=== PATIENT | male | born 1945 | race Caucasian/White ===

== ENCOUNTER → 2018-09-05 07:41 | Outpatient (CLI) | payer OTHER, SELFPAY ==
--- NOTE | 2018-09-05 | DI.MRI.S_ITS ---
PROCEDURE: MR LUMBAR SPINE WO CON INDICATIONS: SPINAL STENOSIS TECHNIQUE: Noncontrast sagittal T1 spin echo and T2 fast echo, sagittal STIR, axial T1 and T2 fast spin echo through the lumbar spine. In cases with scoliosis, additional coronal T2 fast spin echo may be performed. COMPARISON: , CR, XR CHEST 1 VIEW, 05/01/2018, 12:16. , CR, XR LUMBAR SPINE 2 OR 3 VIEWS, 05/01/2018, 12:16. FINDINGS: Image quality: Excellent. Alignment and Curvature: There is grade 1 anterolisthesis of L4-L5. Bone Marrow: There is moderate compression fracture of L2 vertebral body with 50-60% loss of vertebral body height. There is mild marrow edema of L2, suggesting subacute fracture. Spinal Cord: Conus medullaris terminates at the T12-L1 level. Visualized cord demonstrates normal signal and size. Paraspinous Soft Tissues: No paravertebral masses. L1-L2: Mild loss of disc height and disc desiccation. There is diffuse posterior disc bulge. A small posterior central annular fissure is suspected. The central canal is mildly narrowed. Mild bilateral foraminal stenosis. L2-L3: Mild loss of disc height and disc desiccation. There is diffuse posterior disc bulge and disc osteophyte complex. The central canal is mildly narrowed. Dire-rm-ulgwcltc bilateral foraminal stenosis. L3-L4: Mild loss of disc height and disc desiccation. There is diffuse posterior disc bulge and disc osteophyte complex. Mild bilateral facet arthropathy and moderate hypertrophy of ligamentum flavum. The central canal is moderately narrowed. Moderate left and mild right foraminal stenosis. L4-L5: Moderate loss of disc height and disc desiccation. There is diffuse posterior disc bulge and disc osteophyte complex. Severe bilateral facet arthropathy. The central canal is severely narrowed. Moderate bilateral foraminal stenosis. L5-S1: Severe loss of disc height and disc desiccation. There is diffuse posterior disc bulge and disc osteophyte complex. Mild bilateral facet arthropathy. The central canal is minimally narrowed. Moderate bilateral foraminal stenosis. IMPRESSION: 1. Moderate compression fracture of L2. 2. Multilevel degenerative disc disease and facet arthropathy as described. 3. Multilevel central canal stenosis, severe at L4-L5, moderate at L3-L4 and mild at several other levels. 4. Multilevel foraminal stenosis as described. Dictated by: Cristel Earl M.D. on 09/05/2018 at 16:39 Approved by: Cristel Earl M.D. on 09/05/2018 at 17:40
== END ==
PROVIDERS: PCP Internal Medicine; Visit Provider Internal Medicine
DX: M48.56XA Collapsed vertebra, not elsewhere classified, lumbar region, initial encounter for fracture (principal); M48.061 Spinal stenosis, lumbar region without neurogenic claudication; M48.07 Spinal stenosis, lumbosacral region; M47.816 Spondylosis without myelopathy or radiculopathy, lumbar region; M47.817 Spondylosis without myelopathy or radiculopathy, lumbosacral region; M51.36 Other intervertebral disc degeneration, lumbar region; M51.37 Other intervertebral disc degeneration, lumbosacral region
CPT/HCPCS: 72148

== ENCOUNTER → 2018-12-05 15:07 | Outpatient (CLI) | payer OTHER, SELFPAY | PROVIDERS: PCP Internal Medicine; Visit Provider Internal Medicine | DX: M81.0 Age-related osteoporosis without current pathological fracture (principal); Z87.891 Personal history of nicotine dependence | CPT/HCPCS: 77080 ==

== ENCOUNTER 2019-03-20 06:00 | Inpatient (IN) | payer OTHER, SELFPAY ==
[2019-03-15 08:57] VITALS: BMI 29.2
[2019-03-20] VITALS (23 sets, daily range): BP systolic 80–149; BP diastolic 46–98; PULSE 54–80; RESP 9–18; TEMP 36–37.3; O2SAT 92–100; BMI 27.5
--- NOTE | 2019-03-20 | DI.RAD.S_ITS ---
PROCEDURE: XR LUMBAR SPINE 2-3V INDICATIONS: L4-5, L5-S1 TLIF..... TECHNIQUE: 2 views of the lumbar spine were acquired. COMPARISON: None. FINDINGS: Bones: Intraoperative images demonstrate postsurgical changes compatible with L4-L5 and L5-S1 TLIF. Orthopedic hardware is intact. No lucency is identified at the bone hardware interface. Orthopedic hardware is appropriately positioned. Soft tissues: Overlying bowel gas pattern is normal. No suspicious soft tissue calcifications. IMPRESSION: Expected postsurgical change for L4-L5 and L5-S1 TLIF. Dictated by: Cookie Wiggins MD, PhD on 03/20/2019 at 10:41 Approved by: Cookie Wiggins MD, PhD on 03/20/2019 at 10:44
[2019-03-20] MEDS: LACTATED RINGERS 1,000 ML 42 ML IV ×3 (07:15→12:26)
--- NOTE | 2019-03-20 07:21 | PM.PREOP ---
Pre-operative Note Interval Note History & Physical reviewed/Exam performed by Physician: Yes Changes to H&P: No
--- NOTE | 2019-03-20 07:31 | PM.OP.1 ---
Operative Date/Time/Diagnoses Date of procedure: 03/20/19 Time of procedure: 11:32 Pre-op diagnosis: Lumbar stenosis with radiculopathy Lumbar spondylolisthesis Post-op diagnosis: same Procedure & Clinicians Procedure: L4-5, L5-S1 TLIF (post/post interbody fusion) with cages L4, L5, S1 screws Iliac crest bone graft aspirate L3-4, L4-5, L5-S1 laminectomies Use of microscope Placement of epidural catheter Same procedure as scheduled: Yes Indications: [age] year old male with intractable pain from stenosis. They had failed conservative management and requested operative intervention. Risks and benefits of surgery were discussed and appropriate consents were obtained. Surgeon: Riky Chan Yard Assistant: Susan Esteban Anesthesia Type: General Operative Notes Findings: None Closure Type: primary Specimen(s): none sent Prosthetic devices, grafts, tissues, transplants, or devices: NuVasive MAS Reline screws Globus Rise cage Applied: catheter Estimated Blood Loss (mL): 75 Procedure in detail: The patient was brought to the operating room and intubated on the table. A time-out was performed. They were then rolled over to the well-padded Justin table in the prone position. Preoperative antibiotics were given. The back was prepped and draped in the standard sterile fashion. Using fluoroscopy, a 6 cm longitudinal incision was made to the left of the midline. We used Bovie to come down to and split the lumbodorsal fascia. Using fluoroscopy and monitoring, we then percutaneously placed Jamshidi needles down the pedicles of L4, L5, and S1 on the left side. These were changed out to guidewires and then we tapped and then placed the NuVasive MAS Reline screw shanks. We then opened up the retractors and used Bovie to clear up the posterolateral gutter as well as medially along the lamina to the spinous processes. A bur was used to decorticate the transverse process of L5 and the sacral ala. We brought in the microscope. Using a combination of bur and Kerrison rongeurs, a laminectomy was performed from the left side at L5-S1. We performed a facetectomy to clear out the neural foramen until the nerve root was clear. We then began the TLIF prep. A the remainder of the facetectomy as well as cleaning up the exposure site was performed on this side at L5-S1. We carefully cleaned up the remainder of the foramen until we could easily retract the exiting root as well as clearing medially below the dura and expose the disc space. The disc was prepped with bipolar and then an annulotomy was performed. We performed a diskectomy using a combination of paddles, araseli, pituitaries, and curettes. We distracted the disc using a paddle and locked the retractor in an open position. We then filled the disc space with Osteocel bone graft. We then placed the globus Rise cage under fluoroscopy and then filled this in with more bone graft. The distraction on the retractor was released to compress down. This completed the posterior interbody fusion portion of the TLIF at L5-S1. We then changed our retractor blades up to the L4-5 level. The gutter was cleared and the L4 transverse process decorticated. We exposed medially. We performed a left-sided laminectomy at L4-5 using combination of bur and Kerrisons. This level was extremely tight centrally but we were finally able to get across to the other side of the canal, carefully depress the dura, and undermine the right-hand side until we had widely cleared out the spinal canal. This was separate and distinct from a TLIF approach due to the complexity and extensive time decompressing the entire central canal, not just a small laminotomy for exposure. We then rotated our retractor up to the L3-4 level. We cleared along the lamina medially. We then performed a laminectomy with a bur and Kerrison rongeurs. At the end we could sweep cephalad, caudally, and out the foramen and everything was opened. We then placed the screw heads, thania, and locked down the set screws. The wound was copiously irrigated. A small stab incision was made over the PSIS. We used a Jamshidi needle to aspirate several mL of bone marrow from the pelvis. This was mixed with the remaining Osteocel and combined with all of the locally harvested bone graft and placed in the posterolateral gutter for the posterior fusion of the TLIF at L4-5 and L5-S1. An epidural catheter was then placed in the spinal canal by carefully depressing the dura and advancing it 6 cm cephalad under the remaining lamina without resistance. The muscle fascia was closed. The catheter was then injected with a solution containing 4 mL of 0.5% Marcaine, 1 mg Stadol, 4 mg Duramorph, and 100 mcg of fentanyl. This was injected without resistance and the catheter was pulled. We then went to the opposite side. Again using fluoroscopy, a 4 cm incision was made and Bovie was used to come down to split the fascia. Using neural monitoring and fluoroscopy, Jamshidi needles were advanced down the pedicles of L4, L5, and S1 on the right side. These were switched over guidewires, tapped, and screws placed. We then placed a thania and locked the set screws on this side. The wound was irrigated. The fascia was closed. Vancomycin powder was placed in the wounds. The superficial and skin were closed. A sterile dressing was placed. The patient was then rolled over extubated and brought to recovery room without complications. Complications: none Post-operative Condition: stable Disposition: PACU Plan for aftercare: Inpatient. Up with therapy.
[2019-03-20] MEDS: CEFAZOLIN 2 GM/100 ML FROZ.PIGGY IV ×3 (07:50→23:40)
--- NOTE | 2019-03-20 08:22 | SUR.OPER ---
Prone on spine table, head in foam head support, padded chest and pelvic supports, gel pad at knees, lower legs supported by pillows; nipples, genitalia and toes free of pressure, arms secured on foam padded arm boards at <90 degrees abduction. Tape over blanket at thigh secured to table.
[2019-03-20] MEDS: SODIUM CHLORIDE 0.9% 1,000 ML, GENTAMICIN 80 MG IRR (08:32)
[2019-03-20] MEDS: VANCOMYCIN 1,000 MG VIAL 1000 MG TOP (08:32)
[2019-03-20] MEDS: THROMBIN (RECOMBINANT) 5,000 UNIT VIAL 5000 UNIT TOP (08:33)
[2019-03-20] MEDS: BUPIVACAINE 0.5% (PF) 4 ML, MORPHINE-PF 4 MG, BUTORPHANOL 1 MG, fentaNYL 100 MCG INJ (08:34)
--- NOTE | 2019-03-20 12:05 | SUR.PHASEI ---
Patient somnolent, but arouses to noxious stimuli. Patient is very slow to respond. WARD'S X 4. Drsg CDI. Small spot of serosanguionous on steri strip. Patient in SR/SB with infrequesnt PAC's.
--- NOTE | 2019-03-20 12:18 | SUR.PHASEI ---
Pt intermittently responding to questions or commands. Able to wiggle matthew toes. Verbalized his name but reported being in [place]. Did not respond to pain or comfort questions. Dozing intermittently
[2019-03-20] MEDS: HYDROMORPHONE 2 MG INJ 0.5 MG IV ×3 (12:33→13:59)
--- NOTE | 2019-03-20 12:36 | SUR.PHASEI ---
Pt unable to rate pain. Pt c/o sore low back.
--- NOTE | 2019-03-20 12:36 | SUR.PHASEI ---
Pt reported being able to feel touch to toes
--- NOTE | 2019-03-20 13:03 | SUR.PHASEI ---
Frequent premature beats, Dr. Correia shown monitor strips, VS stable. No new orders per MD.
--- NOTE | 2019-03-20 13:13 | SUR.PHASEI ---
Report called to Alma[facility]
--- NOTE | 2019-03-20 13:36 | SUR.PHASEI ---
Pt transferred to the floor on 2l NC, with belongings bags x2 and one black bag. VS stable. IV saline locked. Drsg status unchanged. Report to Almaz.
[2019-03-20] MEDS: LACTATED RINGERS 1,000 ML 125 ML IV ×2 (13:57→22:25)
--- NOTE | 2019-03-20 16:10 | PT.IIE ---
Current Diagnoses Spondylolisthesis, lumbar region (03/20/19) Spinal stenosis, lumbar region with neurogenic claudication (03/20/19) Wedge compression fracture of second lumbar vertebra, initial encounter for closed fracture (03/20/19) Surgery Performed Operation Date: 03/20/19 07:45 Actual Procedures p L3-S1 laminectomy & L4-S1 posterior instrumented fusion w/ bone graft - Riky Chan MD Surgical History (Last Updated 03/15/19 @ 09:54 by Bessy Campo RN) History of repair of left rotator cuff (Acute) History of repair of right rotator cuff (Acute) Hx of appendectomy (Acute) Medical History (Last Updated 03/15/19 @ 10:52 by Bessy Campo RN) Alcohol abuse (Acute) Compression fracture of L2 (Acute) Dementia (Acute) HLD (hyperlipidemia) (Acute) HTN (hypertension) (Acute) Physical Therapy Inpatient Evaluation/Re-Eval M1 PT/OT-IP Prior Functional Status Start: 03/20/19 17:58 Freq: NEEDED Status: Active Protocol: Document 03/20/19 16:10 AB (Rec: 03/20/19 18:17 AB [id number]) Medical Review Prior Functional Status Medical History Reviewed Yes Communication able to make needs known; pt is confused but able to follow slow one step commands. Mobility and Gait pt stated that he is independent with all mobilities and ambulation without AD Social History Household Members none Living Arrangements House Number of Floors (Floors) One Floor Number of Stairs To Enter/Railing? from the front: 5 steps with R rail ascending from the back: 2 steps with bilateral wide rails (can only hold on to one rail at a time ) on to a porch and another step to get into the house Home Environment Standard Height Toilet,Walk in Shower,Tub/Shower Home Equipment Front Wheel Walker,Grab Bars Near Toilet,Grab Bars In Shower Additional Social History Comment stated that somebody had lent him a FWW stated that he has neighbors that he can call for assistance but no consistent person to assist him M2 PT-IP Current Condition Start: 03/20/19 17:58 Freq: NEEDED Status: Active Protocol: Document 03/20/19 16:10 AB (Rec: 03/20/19 18:17 AB [id number]) Physical Therapy Current Condition Current Condition Evaluation Date 03/20/19 Treatment Diagnosis s/p L4-S1 TLIF; L3-S1 lami; difficulty in walking Onset Date 03/20/19 Precautions Lumbar Precautions Log Roll,No Twisting,Limit Bending,Lifting Restriction of 10 lbs,Gait Belt above Incisional Area Other Precautions falls M3 PT-IP Subjective Start: 03/20/19 17:58 Freq: NEEDED Status: Active Protocol: Document 03/20/19 16:10 AB (Rec: 03/20/19 18:17 AB [id number]) Subjective Physical Therapy Visit Type Type Initial Evaluation Visit Start Time 16:10 Visit Stop Time 17:19 Total Visit Minutes 69 Number of APPEALS EXAMINER Visits 0 Physical Therapy Visit Comments Patient Comments pt agreeable to do PT; pt has confusion but able to express self and able to inform PT that he is confused or does not understand the instruction /question Therapy Pain Assessment Pain When Pain Assessed At Rest Pain Present Pain Present Pain Reported Location Lower Back Intensity 6 Scale Used Numeric (1 - 10) Pain Management Techniques Re-positioning,Timing of Activity with Medications M4 PT-IP Mobility and Gait Start: 03/20/19 17:58 Freq: NEEDED Status: Active Protocol: Document 03/20/19 16:10 AB (Rec: 03/20/19 18:17 AB [id number]) PT-Bed Mobility Assessment Rolling Type of Rolling Log Rolling Level of Assist Maximal Assistance,1 Person Assistance Supine to Sit Supine to Sit Maximum Assistance,1 Person Assistance Sit to Supine Sit to Supine Maximum Assistance,1 Person Assistance Scooting Scooting to Edge of Bed Contact Guard Assistance PT-Transfer Assessment Sit to and From Stand Sit to and from Stand Minimal Assistance,Moderate Assistance,1 Person Assistance ,Use of Upper Extremities Equipment Transfer Assistive Device Gait Belt,Front Wheeled Walker Orthotic/Prosthetic Devices or Brace: No Comments Mobility Comments reviewed back precautions with pt and pt requires repeated cues to recall. pt required step by step instructions for techniques and safety. completed log roll max A and max A for supine to sit. pt was able to sit on EOB. initially c/o slight lightheadedness but was better after a few minutes of sitting. BP 117/69. pt completed sit to stand min to mod A and max cues. pt was able to maintain standing using FWW for support while assisted with brief management . pt ambulated in room mod A and max cues with (+) LOB with slight bilateral knee buckling requiring mod A for recovery. pt assisted back to bed. max A and max cues for sit to supine. positioned pt in bed. set up pt for dinner. call light within reach. Gait Assessment Gait Gait Assistance Required: Moderate Assistance,1 Person Assist Distance (Feet) 22 Able to Maintain Weight Bearing Status Yes During Gait Assistive Devices Assistive Device Gait Belt,Front Wheeled Walker Orthotic/Prosthetic Devices or Brace: No Gait Deviations General Gait Pattern Antalgic,Decreased Stride Length,Decreased Feet Clearance Factors Limiting Gait Function Factors Limiting Gait Function Decreased Activity Tolerance, Decreased Strength,Difficulty Following Directions,Limited Range of Motion,Pain,Poor Balance,Poor Safety Awareness Comments Gait Comments pt presents with unsteady gait with decrease BLE elevation with (+) LOB. pls refer to mobility section. PT-Balance Assessment Sitting Balance and Reactions Static Sitting Balance Ability Good Dynamic Sitting Balance Ability Good Standing Balance and Reactions Static Standing Balance Ability Fair Dynamic Standing Balance Ability Poor Device Used FWW M5 PT-IP Objective Assessments Start: 03/20/19 17:58 Freq: NEEDED Status: Active Protocol: Document 03/20/19 16:10 AB (Rec: 03/20/19 18:17 AB [id number]) Orientation Orientation/Cognition Level of Alertness Confusional State Orientation Name,Age,Birthday,Month,Date, Year,Situation Safety Awareness Decreased Safety Awareness Memory Description Short Term Impaired,Nursing Home Impaired Comments pt easily gets confused and needs cues with all tasks. pt has a diagnosis of dementia associated with alcoholism. Gross Range of Motion Lower Extremity ROM Assessment Within Functional Limits Strength Lower Extremity Strength Assessment Bilaterally Impaired Comments Strength Comments RLE: 4-/5 LLE: 3+/5 Muscle Tone Muscle Tone WNL Yes M6 PT-IP Treatment Start: 03/20/19 17:58 Freq: NEEDED Status: Active Protocol: Document 03/20/19 16:10 AB (Rec: 03/20/19 18:17 AB [id number]) Physical Therapy Treatment Education Education Provided Precautions,Weight Bearing Status,Post-Op Packet,Safety M7 PT-IP Assessment and Plan Start: 03/20/19 17:58 Freq: NEEDED Status: Active Protocol: Document 03/20/19 16:10 AB (Rec: 03/20/19 18:17 AB [id number]) PT Summary Assessment and Plan Potential Rehabilitation Potential Fair Status of Condition at Evaluation Evolving Summary Impairments Pain,ROM,Strength,Balance, Coordination,Sensation,Tone, Cognition,Bed Mobility, Transfers,Gait,Activity Tolerance Assessment Summary pt requiring max A with bed mobility and mod A for ambulation using FWW. pt needs to be more independent that current level to be able to safely d/c home. pt lives alone and will not much support at home. pt will require SNF rehab at this time to improve strength and functional independence prior to d/c home. pt has a diagnosis of dementia and requires one step cues for all tasks and safety and is a high fall risk. Goals Bed Mobility Goal Standby Assistance Transfer Goal Contact Guard Assistance,Front Wheeled Walker Gait Goal Contact Guard Assistance,Front Wheel Walker Gait Distance 150 Other Goals up/down 5 steps with R rail ascending min A Days to Meet Goals 10 Frequency of Treatment Frequency Of Treatment Twice a Day Treatment Plan Physical Therapy Treatment Plan Bed Mobility Training,Transfer Training,Gait Training, Therapeutic Exercise,Balance Retraining,Post Op Education, Discharge Planning,Hot or Cold Pack,Neuromuscular Re-ed, Coordination Retraining,Manual Therapy Other Recommendations and Next Treatment bed mobility, transfers, Focus ambulation Recommendations To Nursing Amount of Assist Needed 1 Person Assist Discharge Recommendations PT Discharge Recommendations SNF Rehab
[2019-03-20] MEDS: SIMVASTATIN 20 MG TABLET PO (18:23)
[2019-03-20] MEDS: GABAPENTIN 300 MG CAPSULE PO (21:51)
[2019-03-20] MEDS: DOCUSATE 100 MG CAPSULE PO (21:51)
[2019-03-20] MEDS: CELECOXIB 200 MG CAPSULE PO (21:51)
[2019-03-20] MEDS: SENNOSIDES 8.6 MG TABLET 17.2 MG PO (21:52)
[2019-03-21] MEDS: ONDANSETRON 4 MG/2 ML INJ IV (00:03)
--- NOTE | 2019-03-21 02:53 | PC.NURSE ---
Addendum entered by Raina Weeks R.N. 03/21/19 05:17: Patient has pulled out two IV's during NOC shift. He answers all questions appropriately but is very restless and impulsive. Has tried to get out of bed multiple times without calling for assistance, and has to be reoriented each time. Original Note: Called Dr. Meyer to inform of the bladder scan of 498 mL at 0130. Order to insert straight cath once. Straight catheter inserted at 0230 and 525mL removed.
[2019-03-21 03:19] VITALS: BP 122/57; PULSE 68; RESP 17; TEMP 37.4; O2SAT 94
[2019-03-21 05:16] LABS: Hematocrit 35.4 % (41-53); Hemoglobin 11.8 g/dL (13.5-17.5)
[2019-03-21] MEDS: CELECOXIB 200 MG CAPSULE PO ×2 (07:53→20:09)
[2019-03-21] MEDS: hydroCHLOROthiazide 25 MG TABLET PO (07:53)
[2019-03-21] MEDS: ASPIRIN EC 81 MG TABLET PO (07:54)
[2019-03-21] MEDS: DOCUSATE 100 MG CAPSULE PO ×2 (07:54→20:08)
--- NOTE | 2019-03-21 08:03 | PM.PNPO.1 ---
Subjective Subjective Date Patient Seen: 03/21/19 Time Patient Seen: 08:03 Interval history: He had some confusion overnight and pulled out and IV as well as his Francis catheter. He did need a in-and out catheter overnight. At this point he is sore in the back but no leg pain. Exam Vital Signs (past 8 hours): - 03/21/19 03:19 Temperature 99.4 F Pulse Rate 68 Respiratory Rate 17 Blood Pressure 122/57 L Pulse Oximetry 94 Oxygen Delivery Method Room Air Oxygen Flow Rate 0 Const Orientation: alert and oriented x3 Back/Spine/Pelvis Other: CDI. 5/5 motor both lower extremities Objective Labs Result Diagrams: 03/21/19 05:00 Labs: Laboratory Results - last 24 hr 03/21/19 05:00 Hgb 11.8 L Hct 35.4 L Assessment & Plan Post-op Postoperative Procedures: Procedures Operation Date: 03/20/19 07:45 Actual Procedures Side Surgeon p L3-S1 laminectomy & L4-S1 posterior instrumented fusion w/ bone graft Riky Chan MD He had a rough night but he is doing better today. No longer confused or disoriented. Mobilize today with physical therapy. Anticipate skilled rehab in 2 more days. Quality VTE Deep Vein Thrombosis/Pulmonary Embolism Present on Admission: No
[2019-03-21 08:10] VITALS: BP 104/60; PULSE 64; RESP 18; TEMP 36.8; O2SAT 96
[2019-03-21 08:24] LABS: Blood Urea Nitrogen 16 mg/dL (9-20); Calcium 8.9 mg/dL (8.4-10.2); Carbon Dioxide 32 mmol/L (22-32); Chloride 99 mmol/L (98-107); Estimated Glomerular Filt Rate > 60.0 mL/min (>60); Glucose 117 mg/dL (80-110); HEMOLYSIS < 15 (0-50); Potassium 3.9 mmol/L (3.4-5.1); Sodium 135 mmol/L (137-145)
--- NOTE | 2019-03-21 11:22 | PT.IPTN ---
Current Diagnoses Spondylolisthesis, lumbar region (03/20/19) Spinal stenosis, lumbar region with neurogenic claudication (03/20/19) Wedge compression fracture of second lumbar vertebra, initial encounter for closed fracture (03/20/19) Surgery Performed Operation Date: 03/20/19 07:45 Actual Procedures p L3-S1 laminectomy & L4-S1 posterior instrumented fusion w/ bone graft - Riky Chan MD Physical Therapy Treatment Note M2 PT-IP Current Condition Start: 03/20/19 17:58 Freq: NEEDED Status: Active Protocol: Document 03/20/19 16:10 AB (Rec: 03/20/19 18:17 AB [id number]) Physical Therapy Current Condition Current Condition Evaluation Date 03/20/19 Treatment Diagnosis s/p L4-S1 TLIF; L3-S1 lami; difficulty in walking Onset Date 03/20/19 Precautions Lumbar Precautions Log Roll,No Twisting,Limit Bending,Lifting Restriction of 10 lbs,Gait Belt above Incisional Area Other Precautions falls M3 PT-IP Subjective Start: 03/20/19 17:58 Freq: NEEDED Status: Active Protocol: Document 03/21/19 11:22 AB (Rec: 03/21/19 13:07 AB [id number]) Subjective Physical Therapy Visit Type Type Treatment Note Visit Start Time 11:22 Visit Stop Time 11:43 Total Visit Minutes 21 Number of AGRICULTURAL AIRCRAFT PILOT Visits 0 Physical Therapy Visit Comments Patient Comments pt agreed to get up Therapy Pain Assessment Pain When Pain Assessed During Mobility Pain Present Pain Present Pain Reported Location Lower Back Scale Used pain scale not stated but c/o pain Description With Movement Pain Management Techniques Re-positioning,Timing of Activity with Medications M4 PT-IP Mobility and Gait Start: 03/20/19 17:58 Freq: NEEDED Status: Active Protocol: Document 03/21/19 11:22 AB (Rec: 03/21/19 13:07 AB [id number]) PT-Bed Mobility Assessment Rolling Type of Rolling Log Rolling Level of Assist Moderate Assistance Supine to Sit Supine to Sit Maximum Assistance,1 Person Assistance PT-Transfer Assessment Sit to and From Stand Sit to and from Stand Minimal Assistance,1 Person Assistance,Use of Upper Extremities Equipment Transfer Assistive Device Gait Belt,Front Wheeled Walker Orthotic/Prosthetic Devices or Brace: No Transfers Transfer Destination Chair Transfer Technique pt ambulated using FWW Transfer Ability Level of Assist Minimal Assistance,Moderate Assistance,1 Person Assistance Gait Assessment Gait Gait Assistance Required: Minimum Assistance,Moderate Assistance Distance (Feet) 50 Able to Maintain Weight Bearing Status Yes During Gait Assistive Devices Assistive Device Gait Belt,Front Wheeled Walker Orthotic/Prosthetic Devices or Brace: No Gait Deviations General Gait Pattern Antalgic,Decreased Stride Length,Decreased Feet Clearance Factors Limiting Gait Function Factors Limiting Gait Function Decreased Activity Tolerance, Decreased Strength,Difficulty Following Directions, Incoordination,Limited Range of Motion,Pain,Poor Balance, Poor Safety Awareness Comments Gait Comments pt is impulsive and requires max cues with all tasks. Pt has decrease cognitive level affecting safety awareness. M5 PT-IP Objective Assessments Start: 03/20/19 17:58 Freq: NEEDED Status: Active Protocol: Document 03/20/19 16:10 AB (Rec: 03/20/19 18:17 AB [id number]) Orientation Orientation/Cognition Level of Alertness Confusional State Orientation Name,Age,Birthday,Month,Date, Year,Situation Safety Awareness Decreased Safety Awareness Memory Description Short Term Impaired,Fci Impaired Comments pt easily gets confused and needs cues with all tasks. pt has a diagnosis of dementia associated with alcoholism. Gross Range of Motion Lower Extremity ROM Assessment Within Functional Limits Strength Lower Extremity Strength Assessment Bilaterally Impaired Comments Strength Comments RLE: 4-/5 LLE: 3+/5 Muscle Tone Muscle Tone WNL Yes M6 PT-IP Treatment Start: 03/20/19 17:58 Freq: NEEDED Status: Active Protocol: Document 03/21/19 11:22 AB (Rec: 03/21/19 13:07 [id number]) Physical Therapy Treatment Education Education Provided Precautions,Safety Other Treatments Other Treatment Performed repeated back precautions with pt but pt unable to recall M7 PT-IP Assessment and Plan Start: 03/20/19 17:58 Freq: NEEDED Status: Active Protocol: Document 03/21/19 11:22 AB (Rec: 03/21/19 13:07 [id number]) PT Summary Assessment and Plan Potential Rehabilitation Potential Good Summary Impairments Pain,ROM,Strength,Balance, Coordination,Sensation,Tone, Cognition,Bed Mobility, Transfers,Gait,Activity Tolerance Progress Towards Goals Slow Progress due to Medical Issues,Slow Progress - Other Assessment Summary pt requiring max A with supine to sit and max cues to maintain back precautions. pt has decrease safety awareness affecting mobility level and assistance level. pt will require SNF rehab to improve strength and independence. Goals Bed Mobility Goal Standby Assistance Transfer Goal Contact Guard Assistance,Front Wheeled Walker Gait Goal Contact Guard Assistance,Front Wheel Walker Gait Distance 150 Other Goals up/down 5 steps with R rail ascending min A Days to Meet Goals 10 Frequency of Treatment Frequency Of Treatment Twice a Day Treatment Plan Physical Therapy Treatment Plan Bed Mobility Training,Transfer Training,Gait Training, Therapeutic Exercise,Balance Retraining,Post Op Education, Discharge Planning,Hot or Cold Pack,Neuromuscular Re-ed, Coordination Retraining,Manual Therapy Other Recommendations and Next Treatment bed mobility, transfers, Focus ambulation Recommendations To Nursing Amount of Assist Needed 1 Person Assist Discharge Recommendations PT Discharge Recommendations SNF Rehab
[2019-03-21 11:26] VITALS: BP 117/59; PULSE 91; RESP 20; TEMP 37; O2SAT 92
--- NOTE | 2019-03-21 13:45 | CM.DANOTE ---
DCP Assessment: EMR reviewed: Patient is a 73 yr old male with hx of Alzheimers was admitted for Lower back surgery. According to MD and PT patient will need SNF for rehab. Cm met with patient and explained CM role patient was oriented and alert at time of meeting. patient chose [facility] for preferred SNF choice and CM contacted [facility] -November to review Patient for possible placement. November at [facility] called back and agreed to accept patient. PASRR completed CM contacted [facility] to review patient and get an Auth for SNF placement left two messages [phone] for danelle who is covering for the patients [facility] CM TIEN Witt who is off today. department will F/U with [facility] for prior auth for SNF. Insurance; 1st: [facility] 2nd: self pay Plan: to D/C to [facility] for further Rehab. pending Authorization from [facility]. Suzy Meyer RN Discharge Planning/Care Management CM Discharge Assessment Start: 03/21/19 13:23 Freq: Status: Active Protocol: Document 03/21/19 13:23 HS (Rec: 03/21/19 13:45 [id number]) Discharge Planning Assessment Assigned Education And Training Manager Suzy Meyer RN DPOA/Assigned Designee Name Elizabeth (daughter) Advance Directives? Yes History Provided By Patient,Medical Record Has Patient been admitted in last 30 No days? Prior Living Arrangements House Household Members none Type of transporation used prior to Drives own vehicle admit Independent with ADL's No Is patient alert and oriented? Yes: Alert when CM spoke with patient but not previous night Caregiver for Another No Patient/Family Preference Retirement Facility Discharge Plan Retirement Facility Referrals Initiated Retirement If patient plan is SNF: Has PASSR been Yes completed? Medicare Choice List Provided Yes SNF/HH Preference [facility] preferred Contact Name/Phone November at [facility] contacted - and have accepted patient Has Agency SNF been contacted Yes Whiteboard Updated in Patient Room with Yes name and ext. # of Education And Training Manager Review Status In Process Next Review Type Continued Stay Review Pre-Anesthesia Assessment Start: 03/15/19 08:57 Freq: Status: Complete Protocol: Document 03/15/19 08:57 CAB (Rec: 03/15/19 10:02 CAB [id number]) Pre-Anesthesia Assessment PAC Comment Pt has significant dementia/ memory issues r/t prior alcoholism. PAC phone assessment difficult to complete. Patient Information Reviewed Via Phone Assessment Assessment Completed With Patient Diagnostic Results BMP/CMP,CBC,EKG Comment Outside labs/EKG scanned to record Primary Care Provider Sal Ivan Seen Specialist in Last 12 Months Yes Specialist Seen Orthopedist,Other Comment Neurology. Last PCP note 02/15 scanned to record Primary Language Yoruba Franchise Sales Manager Required No Height 172.72 cm Weight 87.09 kg Body Mass Index (BMI) 29.2 Hearing Ability Hard of Hearing Visual Assist Glasses Dentition Type Teeth, Natural Present Barriers to Learning Memory Comment Dementia/cognitive impairment r/t alcoholism Hx Anesthesia Reactions No: Dementia/cognitive impairment r/t alcoholism Hx Family Anesthesia Reaction Pt does not know Hx Malignant Hyperthermia Pt does not know Hx Blood Transfusions Pt does not know Laminator Yes: Dementia, no one to stay w/pt @ dc alcohol intake former Alcohol Intake Frequency Other: Sober x 8.5 years Smoking Status Former smoker how long ago did patient quit smoking Quit 8.5 years ago Substance Use Type does not use Pain Present Pain Reported Musculoskeletal Symptoms Back Pain,Radiating Pain into Limb History of Falling (Recent or History of Yes ) Patient is completely paralyzed or No completely immobile Mental Status Forgets limitations Is patient on oxygen? No Does patient have KWONG/SOB No Hx Sleep Apnea No Currently Taking a Beta Nicolasa No Can You Climb a Flight of Stairs Without Yes SOB Hx Chest Pain No Hx SOB No Hx Syncope or Dizziness No Anti-Coagulant Therapy No Has a Delivery Crew Member No Cardiac Testing No Hx Pacemaker/ICD No Pacemaker Rep Required? No Cardiac Clearance Received Not Applicable Diet Type At Home Regular dysphagia No Urinary Catheter Present No Hx Urinary Self Catheterization No Diabetes No Have you traveled outside the [facility] in the last 30 days? Marital Status / Lives With none Prior Living Arrangements House Number of Floors (Floors) One Floor Support System Friend(s) Does the Patient Have Assistance After No Surgery Patient Discharge Plan Description Return Home Feels Safe in Current Environment Yes Been Physically Hurt or Threatened By a No Person in Current Environment Do you have thoughts of harming yourself None or others? Are you currently considering suicide? No Do you have a plan to hurt yourself or No Plan others? Do You Have Any Spiritual Beliefs That No May Affect Your HC Choices? Do You Have Any Cultural Practices That No May Affect Your HC Choices? Comment Druze Who Can We Speak to About Patient's Care Family, friends Identifying Code for Release of Patient Declines to issue Information Health Care Proxy/Next of Kin Elizabeth (daughter) Health Care Proxy Phone Number Pt to update dos Emergency Contact Name Elizabeth (daughter) Emergency Contact Phone Number Pt to update dos PAC Instructions Durable medical equipment, Medications to take/avoid, Nasal antibiotic,No ETOH/ petroleum product on skin DOS, Post-op transportation,Pre- surgical wash,Sturdy shoes/ comfortable clothes,Do not bring valuables and remove jewelry
--- NOTE | 2019-03-21 14:57 | PC.NURSE ---
LOC/Ortho: Minimal pain, has declined pain med each time offered. Is disoriented to place, situation, and sl off on date. Started laughing at one point in time when told he was at the hospital and had surgery. Does admit to having dementia. This am he thought he needed to get his wallet and find a ride to get home. He was reassured. He will be staying awhile longer. He is quite pleasant, likes to tell jokes, hops oob or tries to about every 15-30mins. Able to figure out the chair alarm, stood, turned around and removed the chair alarm off its post and took it with him. O2 sats borderline this am on awakening. (sats were 90-92 and then increased w/IS and deep breathing to 97%) This afternoon when he finally napped it was 89-91%. Came up to 97% with deep breaths. Call placed to md to make him aware of sats and pt remains disoriented. His friend had called him and called this editorial writer also telling her pt was a little more disoriented than usual. Does have a hx of dementia which pt admits to and reports it was from to much partying. Has been sober for almost 9 yrs. Ortho - not following his lami precautions w/out max verb cues and needing freq reminders. He simply forgets. Minimal pain, other times will say the pain is severe. Po meds offered and refused so far. Says he doesn't need them. PPP, w/feet =/cool. Denies sensation changes to his legs. Cont w/poc.
--- NOTE | 2019-03-21 15:18 | PT.IPTN ---
Current Diagnoses Spondylolisthesis, lumbar region (03/20/19) Spinal stenosis, lumbar region with neurogenic claudication (03/20/19) Wedge compression fracture of second lumbar vertebra, initial encounter for closed fracture (03/20/19) Surgery Performed Operation Date: 03/20/19 07:45 Actual Procedures p L3-S1 laminectomy & L4-S1 posterior instrumented fusion w/ bone graft - Riky Chan MD Physical Therapy Treatment Note M2 PT-IP Current Condition Start: 03/20/19 17:58 Freq: NEEDED Status: Active Protocol: Document 03/20/19 16:10 AB (Rec: 03/20/19 18:17 AB [id number]) Physical Therapy Current Condition Current Condition Evaluation Date 03/20/19 Treatment Diagnosis s/p L4-S1 TLIF; L3-S1 lami; difficulty in walking Onset Date 03/20/19 Precautions Lumbar Precautions Log Roll,No Twisting,Limit Bending,Lifting Restriction of 10 lbs,Gait Belt above Incisional Area Other Precautions falls M3 PT-IP Subjective Start: 03/20/19 17:58 Freq: NEEDED Status: Active Protocol: Document 03/21/19 15:18 AB (Rec: 03/21/19 16:46 AB [id number]) Subjective Physical Therapy Visit Type Type Treatment Note Visit Start Time 15:18 Visit Stop Time 15:43 Total Visit Minutes 25 Number of AUDIO VISUAL TECH Visits 0 Physical Therapy Visit Comments Patient Comments pt agreeble to do PT Therapy Pain Assessment Pain When Pain Assessed During Mobility Pain Present Pain Present Pain Reported Location Lower Back Intensity 6 Pain Management Techniques Re-positioning M4 PT-IP Mobility and Gait Start: 03/20/19 17:58 Freq: NEEDED Status: Active Protocol: Document 03/21/19 15:18 AB (Rec: 03/21/19 16:46 AB [id number]) PT-Bed Mobility Assessment Supine to Sit Supine to Sit Moderate Assistance,1 Person Assistance Sit to Supine Sit to Supine Moderate Assistance,2 Person Assistance PT-Transfer Assessment Sit to and From Stand Sit to and from Stand Minimal Assistance,Moderate Assistance,1 Person Assistance ,Use of Upper Extremities Equipment Transfer Assistive Device Gait Belt,Front Wheeled Walker Orthotic/Prosthetic Devices or Brace: No Gait Assessment Gait Gait Assistance Required: Minimum Assistance,1 Person Assist Distance (Feet) 150 Able to Maintain Weight Bearing Status Yes During Gait Assistive Devices Assistive Device Gait Belt,Front Wheeled Walker Orthotic/Prosthetic Devices or Brace: No Gait Deviations General Gait Pattern Antalgic,Decreased Stride Length,Decreased Feet Clearance,Flexed Trunk,Step-to Gait Factors Limiting Gait Function Factors Limiting Gait Function Decreased Activity Tolerance, Decreased Strength,Difficulty Following Directions,Limited Range of Motion,Pain,Poor Balance,Poor Safety Awareness Comments Gait Comments pt requires max cues with all tasks. pt is also easily distracted and requires cues for redirections. M5 PT-IP Objective Assessments Start: 03/20/19 17:58 Freq: NEEDED Status: Active Protocol: Document 03/20/19 16:10 AB (Rec: 03/20/19 18:17 AB [id number]) Orientation Orientation/Cognition Level of Alertness Confusional State Orientation Name,Age,Birthday,Month,Date, Year,Situation Safety Awareness Decreased Safety Awareness Memory Description Short Term Impaired,Skilled Nursing Impaired Comments pt easily gets confused and needs cues with all tasks. pt has a diagnosis of dementia associated with alcoholism. Gross Range of Motion Lower Extremity ROM Assessment Within Functional Limits Strength Lower Extremity Strength Assessment Bilaterally Impaired Comments Strength Comments RLE: 4-/5 LLE: 3+/5 Muscle Tone Muscle Tone WNL Yes M6 PT-IP Treatment Start: 03/20/19 17:58 Freq: NEEDED Status: Active Protocol: Document 03/21/19 15:18 AB (Rec: 03/21/19 16:46 AB [id number]) Physical Therapy Treatment Education Education Provided Safety Other Treatments Other Treatment Performed reviewed back precautions and safety with pt. pt unable to recall is back precautions M7 PT-IP Assessment and Plan Start: 03/20/19 17:58 Freq: NEEDED Status: Active Protocol: Document 03/21/19 15:18 AB (Rec: 03/21/19 16:46 AB [id number]) PT Summary Assessment and Plan Potential Rehabilitation Potential Good Summary Impairments Pain,ROM,Strength,Balance, Coordination,Sensation,Tone, Cognition,Bed Mobility, Transfers,Gait,Activity Tolerance Progress Towards Goals Slow Progress - Other Assessment Summary pt requiring min to mod A with mobility and requires max cues with all tasks. pt with decrease cognitive level affecting mobility and safety awareness. pt requires repeated one step instructions during mobility. pt lives alone and will not much assistance at home. pt will require SNF rehab to improve strength and mobility. Goals Bed Mobility Goal Standby Assistance Transfer Goal Contact Guard Assistance,Front Wheeled Walker Gait Goal Contact Guard Assistance,Front Wheel Walker Gait Distance 150 Other Goals up/down 5 steps with R rail ascending min A Days to Meet Goals 10 Frequency of Treatment Frequency Of Treatment Twice a Day Treatment Plan Physical Therapy Treatment Plan Bed Mobility Training,Transfer Training,Gait Training, Therapeutic Exercise,Balance Retraining,Post Op Education, Discharge Planning,Hot or Cold Pack,Neuromuscular Re-ed, Coordination Retraining,Manual Therapy Other Recommendations and Next Treatment bed mobility, transfers, Focus ambulation Recommendations To Nursing Amount of Assist Needed 1 Person Assist Discharge Recommendations PT Discharge Recommendations SNF Rehab
[2019-03-21 16:07] VITALS: BP 132/76; PULSE 76; RESP 18; TEMP 36.9; O2SAT 97
--- NOTE | 2019-03-21 16:30 | OT.IP.EVAL ---
Current Diagnoses Spondylolisthesis, lumbar region (03/20/19) Spinal stenosis, lumbar region with neurogenic claudication (03/20/19) Wedge compression fracture of second lumbar vertebra, initial encounter for closed fracture (03/20/19) Surgery Performed Operation Date: 03/20/19 07:45 Actual Procedures p L3-S1 laminectomy & L4-S1 posterior instrumented fusion w/ bone graft - Riky Chan MD Past Medical History (Last Updated 03/15/19 @ 10:52 by Bessy Campo RN) Alcohol abuse (Acute) Compression fracture of L2 (Acute) Dementia (Acute) HLD (hyperlipidemia) (Acute) HTN (hypertension) (Acute) Surgical History (Last Updated 03/15/19 @ 09:54 by Bessy Campo RN) History of repair of left rotator cuff (Acute) History of repair of right rotator cuff (Acute) Hx of appendectomy (Acute) Occupational Therapy Inpatient Evaluation/Re-Eval M2 OT-IP Current Condition Start: 03/21/19 17:28 Freq: Status: Active Protocol: Document 03/21/19 16:30 [facility] (Rec: 03/21/19 17:50 [facility] [id number]) Occupational Therapy Current Condition Current Condition Evaluation Date 03/21/19 Treatment Diagnosis s/p L3-S1 Lami, L4-S1 TLIF decreased mobility Diagnosis Onset Date 03/20/19 Post Operative Precautions Abdominal Surgery Precautions Log Roll,Lifting Restrictions, Gait Belt above Incisional Area Weight Bearing Status Weight Bearing Status Weight Bear as Tolerated M3 OT- IP Subjective and Pain Start: 03/21/19 17:28 Freq: Status: Active Protocol: Document 03/21/19 16:30 [facility] (Rec: 03/21/19 17:50 [facility] [id number]) OT- Subjective Occupational Therapy Visit Type Type Initial Evaluation Visit Start Time 16:30 Visit Stop Time 17:02 Total Visit Minutes 32 Occupational Therapy Visit Comments Patient Comments Pt agreeable to work with OT. OT Pain Assessment Pain When Pain Assessed At Rest Pain Present Pain Present Denied Pain M4 OT- IP ADL's Start: 03/21/19 17:28 Freq: Status: Active Protocol: Document 03/21/19 16:30 [facility] (Rec: 03/21/19 17:50 [facility] [id number]) OT ADL-Dressing General Eval Lower Body Dressing Ability Maximum Assistance Areas Needing Assistance Pants/Shorts,Socks Comments OT Dressing Comments Pt able to reach down to get his feet into the pants however needing MOD cues not to bend at his back. MODA to help stand while pt able to pull up pants up over his hips. Pt will not be able to do socks at this time and therefore MAXA for socks. M5 OT- IP IADL's Start: 03/21/19 17:28 Freq: Status: Active Protocol: Document 03/21/19 16:30 [facility] (Rec: 03/21/19 17:50 [facility] [id number]) OT-Instrumental Activities of Daily Living Home Safety Awareness Home Safety Comments At this time pt unaware that he is in the hospital or even that he had back surgery. Pt lives home alone at this time not safe to go home. M6 OT- IP Functional Cognition Start: 03/21/19 17:28 Freq: Status: Active Protocol: Document 03/21/19 16:30 [facility] (Rec: 03/21/19 17:50 [facility] [id number]) Cognitive Factors Limiting Selfcare Function Cognitive Ability Level of Alertness Confusional State Patient Orientation Name Attention Span Ability Capable of Focused Attention, Unable to Sustain Attention Ability to Follow Commands Able to Follow One Step Commands with Increased Time, Able to Follow One Step Commands with Repetition Memory Description Immediate Impaired,Short Term Impaired Safety Awareness Decreased Recall of Precautions,Decreased Ability to Apply Precautions, Underestimates Need for Assistance Problem Solving Ability Unable to Identify Errors, Needs Assist to Identify Solutions Executive Function Ability Unable to Switch Focus,Unable to Filter Distractions,Unable to Make Plans,Unable to Organize Plans,Unable to Remember Details Cognitive Comments Cognitive Assessment Comments Pt states has dementia and does not remember things well. Pt needing step by step instructions for bed mobility, how to come from sit to stand , and safe use of FWW at this time. Pt unaware that he has back precautions or even that he had surgery. Pt needing to be reminded every several minutes that he is in the hospital as he just had back surgery. Pt is highly distracted and impulsive. M7 OT- IP Mobility and Balance Start: 03/21/19 17:28 Freq: Status: Active Protocol: Document 03/21/19 16:30 [facility] (Rec: 03/21/19 17:50 [facility] [id number]) OT- Bed Mobility Assessment Supine to Sit Supine to Sit Assist Moderate Assistance Sit to Supine Sit to Supine Assist Moderate Assistance Scooting Scooting to Edge of Bed Minimal Assistance OT-Transfer Assessment Sit to and From Stand Sit to and from Stand Minimal Assistance,Moderate Assistance Transfers Transfer Ability Moderate Assistance,1 Person Assistance Technique Transfer Destination Bed,Chair Transfer Technique Stand Step Pivot Devices Transfer Assistive Devices Gait Belt,Front Wheeled Walker Comments Mobility Comments Pt needing step by step instructions for log rolling, tactile cues and MAX verbal cues and MODA to assist from sidelying to sitting. Pt unable to come up to sit to stand safely and will need daily repetition for safety, correct hand positioning and technique to come to stand. Once upright pt needing assist for FWW guidance, verbal cue for safety and assist to help lower to the recliner. OT- Balance Assessment Sitting Balance and Reactions Static Sitting Balance Ability Normal Dynamic Sitting Balance Ability Good Standing Balance and Reactions Static Standing Balance Ability Fair M8 OT- IP Objective Assessments Start: 03/21/19 17:28 Freq: Status: Active Protocol: Document 03/21/19 16:30 [facility] (Rec: 03/21/19 17:50 [facility] [id number]) OT Gross Range of Motion Upper Extremity Range of Motion Assessment Within Functional Limits OT Strength Upper Extremity Strength Assessment Within Functional Limits M9 OT- IP Assessment and Plan Start: 03/21/19 17:28 Freq: Status: Active Protocol: Document 03/21/19 16:30 [facility] (Rec: 03/21/19 17:50 [facility] [id number]) OT Summary Assessment and Plan Potential Rehabilitation Potential Good Analytic Complexity at Evaluation Low Summary OT Impairments Balance,Functional Cognition, Functional Mobility,Grooming, Dressing,Toileting,Bathing, Toilet Transfers,Shower Transfers Progress Towards Goals Slow Progress due to Cognition Assessment Summary Pt low complexity and now needing MODA for bed mobility needs, MAX vc to be able to remember that he is in the hospital and had back surgery, and needing MODA to help put on his pants. Pt is not safe to go home and is a high fall risk and would benefit from skilled rehab prior to going home. Pt lives alone and would benefit from ongoing training for safety of back precautions for all ADl and functional mobility needs. Goals Grooming Goal Independent Dressing Goal Independent Toileting Goal Independent Bathing Goal Independent Toilet Transfer Goal Independent Shower Transfer Goal Independent Patient/Caregiver Education Goal Demonstrate Post-Op Precautions,Caregiver Independent Assisting Patient Days to Meet Goals 15 Frequency of Treatment Frequency Of Treatment Once a Day Treatment Plan OT Treatment Plan ADL Training,Functional Cognition Training,Functional Mobility,Patient/Family Education,Discharge Planning Other Treatment Recommendations and Next Standing at sink for grooming Treatment Focus needs. Pt to be able to recall that he has had back surgery. Discharge Recommendations OT Discharge Recommendations SNF Rehab
[2019-03-21] MEDS: SIMVASTATIN 20 MG TABLET PO (17:09)
[2019-03-21] MEDS: HYDROCODONE/ACET 5/325 TABLET 1 TAB PO (18:28)
[2019-03-21 20:00] VITALS: BP 147/98; PULSE 74; RESP 18; TEMP 36.7; O2SAT 97
[2019-03-21] MEDS: SENNOSIDES 8.6 MG TABLET 17.2 MG PO (20:09)
[2019-03-21] MEDS: GABAPENTIN 300 MG CAPSULE PO (20:10)
--- NOTE | 2019-03-21 22:02 | PC.NURSE ---
Pt's SCD's have not been applied due to confusion as well as impulsiveness when getting out of bed. Confirmed OK to leave off with RN.
--- NOTE | 2019-03-21 22:27 | PC.NURSE ---
Pt can not get comfortable in his bed. Elevated HOB which he stated helped a bit. When asked his pain level he stated a 5 or 6 out of 10. Notified RN.
[2019-03-21] MEDS: hydrOXYzine pamoate 25 MG CAPSULE PO (22:36)
[2019-03-21 23:35] VITALS: BP 126/76; PULSE 80; RESP 18; TEMP 37.3; O2SAT 91
[2019-03-22] VITALS (8 sets, daily range): BP systolic 133–155; BP diastolic 64–99; PULSE 60–89; RESP 16–18; TEMP 36.5–37.2; O2SAT 91–99
--- NOTE | 2019-03-22 03:20 | PC.NURSE ---
Addendum entered by Suzan Garner R.N. 03/22/19 06:45: Pt appears to have figured out how to disable bed alarm. Alarm was on and pt was able to exit without setting alarm off. Addendum entered by Suzan Garner R.N. 03/22/19 06:07: Pt still impulsive and does not use call light appropriately. Original Note: Shift note: Pt became restless around 3am, attempting to exit bed, refusing to use walker to ambulate, resistant to SHREDDED FILLER CIGAR MAKER MACHINE or nursing assistance. Pt agreed to go to the bathroom as he had requested to use toilet, upon entering, closed bathroom door and locked it. While in there, pt removed gate belt. Pt seems confused on his hospitalization and post-op status when explaining his surgeon's orders and hospital policy. Pt able to remove chair alarm clip easily from gown, will attempt to place it in a more difficult to remove area. Coordinator notified of pt's non-compliance and when pt had locked himself in the bathroom.
[2019-03-22] MEDS: DOCUSATE 100 MG CAPSULE PO ×2 (08:25→20:25)
[2019-03-22] MEDS: CELECOXIB 200 MG CAPSULE PO ×2 (08:25→20:26)
[2019-03-22] MEDS: ASPIRIN EC 81 MG TABLET PO (08:25)
[2019-03-22] MEDS: hydroCHLOROthiazide 25 MG TABLET PO (08:25)
--- NOTE | 2019-03-22 08:28 | PM.PNPO.1 ---
Subjective Subjective Date Patient Seen: 03/22/19 Time Patient Seen: 08:28 Interval history: He is fairly comfortable. Still sore in the back. Has been up and mobilizing well with physical therapy. Had some confusion last night and accidentally locked himself in the bathroom. Exam Vital Signs (past 8 hours): - 03/22/19 05:08 03/22/19 07:32 Temperature 98.5 F 97.9 F Pulse Rate 76 77 Respiratory Rate 16 16 Blood Pressure 152/73 H 146/72 H Pulse Oximetry 93 98 Oxygen Delivery Method Room Air Oxygen Flow Rate 0 Const Orientation: alert Back/Spine/Pelvis Other: CDI. 5/5 motor both lower extremities Objective Labs Result Diagrams: 03/21/19 05:00 03/21/19 05:00 Labs: Laboratory Results - last 24 hr 03/21/19 05:00 Sodium 135 L Potassium 3.9 Chloride 99 Carbon Dioxide 32 BUN 16 Creatinine 0.80 Estimated GFR > 60.0 BUN/Creatinine Ratio 20.0 Glucose 117 H Calcium 8.9 Assessment & Plan Post-op Postoperative Procedures: Procedures Operation Date: 03/20/19 07:45 Actual Procedures Side Surgeon p L3-S1 laminectomy & L4-S1 posterior instrumented fusion w/ bone graft Riky Chan MD he is doing well and mobilizing well after surgery. Plan to continue working with physical therapy. Patient normally lives at home by himself and family would like him to go to [facility]. Social work is currently working on SNF authorization. Quality VTE Deep Vein Thrombosis/Pulmonary Embolism Present on Admission: No
--- NOTE | 2019-03-22 08:31 | PM.DS.1 ---
History of Present Illness History of Present Illness Date Patient Seen: 03/24/19 Time Patient Seen: 09:00 Chief complaint: Translaminar Interbody Fusion/Laminotomy Narrative: 73-year-old male with spinal stenosis. He has had problems with back pain over the years but his symptoms greatly escalated last fall after a fall off of a ladder. He has been through several months of physical therapy. Epidural injections have never lasted for him. Discharge Providers Provider Date of admission: 03/20/19 06:00 Discharge Date: 03/24/19 Primary care physician: Sal Ivan MD Consults: 03/20/19 13:24 Consult to Occupational Therapy Evaluate & Treat Comment: Physician Instructions: Evaluate and treat Consult to Physical Therapy Evaluate & Treat Comment: Physician Instructions: Evaluate and Treat Discharge provider: Riky Chan MD Summary Hospital Course Discharge Diagnosis: Lumbar stenosis and spondylolisthesis with radiculopathy Hospital Course: He is brought to the operating room on 03/20/2019 where he underwent a L3 through S1 laminectomy with instrumented fusion from L4 through S1. Postoperatively his pain gradually improved. He was mobilizing with physical therapy. He did have some instances with confusion and disorientation, much more pronounced at night time. This improved over the course of his hospitalization. Pain control was good and he did not require any narcotic medication after the 1st day. However we felt that he was not safe to be alone as he normally lives by himself. Arrangements were made where friend could come stay with him for the next several days. Status at Discharge Functional status at discharge: uses cane/walker Overall status at discharge: patient is progressing back to baseline Exam Vital Signs (past 8 hours): - 03/22/19 05:08 03/22/19 07:32 Temperature 98.5 F 97.9 F Pulse Rate 76 77 Respiratory Rate 16 16 Blood Pressure 152/73 H 146/72 H Pulse Oximetry 93 98 Oxygen Delivery Method Room Air Oxygen Flow Rate 0 Const Orientation: alert Back/Spine/Pelvis Other: CDI. 5/5 motor both lower extremities Objective Labs Result Diagrams: 03/21/19 05:00 03/21/19 05:00 Labs: Laboratory Results - last 24 hr 03/21/19 05:00 Sodium 135 L Potassium 3.9 Chloride 99 Carbon Dioxide 32 BUN 16 Creatinine 0.80 Estimated GFR > 60.0 BUN/Creatinine Ratio 20.0 Glucose 117 H Calcium 8.9 Discharge Plan Discharge Plan Patient Disposition: Home Discharge comment: Follow-up 1.5 weeks As he was not needing narcotics, the [place] and [place] prescriptions were shredded Discharge Med Rec/Prescriptions Prescriptions: New celecoxib [Celebrex] 200 mg Capsule 200 mg PO BID PRN (Reason: pain) Qty: 60 RF: 0 docusate sodium [DOK] 100 mg Capsule 100 mg PO BID PRN (Reason: constipation) Qty: 30 RF: 0 hydrocodone-acetaminophen 5-325 mg Tablet 1 tab PO Q6HR PRN (Reason: pain) Qty: 20 RF: 0 Continued acetaminophen-codeine 300-30 mg Tablet 1 tab PO DAILY PRN (Reason: Pain) RF: 0 aspirin 81 mg Tablet,Delayed Release (Dr/Ec) 81 mg PO DAILY RF: 0 hydrochlorothiazide 25 mg tablet 25 mg PO DAILY RF: 0 simvastatin 20 mg tablet 20 mg PO QPM RF: 0 Discontinued ibuprofen 200 mg Capsule 200 mg PO BID PRN (Reason: Pain) RF: 0 Follow up/Referrals: Sal Ivan MD [Primary Care Provider] - Provider Discharge Instructions Diet: Diet as Tolerated Activity: Limited bend twist lift, 10 lb maximum Skin/Wound/Dressing Care Report to your healthcare provider any signs of infection, such as:: chills, fever, night sweats, increased pain, unusual drainage and unusual redness Dressing: may change dressing and shower POD#5 (Tuesday) Visit Report/Discharge Packet Instructions: How to Prevent Falls, DI for Transforaminal Lumbar Interbody Fusion Stand Alone Forms: Surgery Discharge Discharge Data Primary Care Provider: Sal Ivan Quality VTE Deep Vein Thrombosis/Pulmonary Embolism Present on Admission: No
--- NOTE | 2019-03-22 10:36 | PT.IPTN ---
Current Diagnoses Spondylolisthesis, lumbar region (03/20/19) Spinal stenosis, lumbar region with neurogenic claudication (03/20/19) Wedge compression fracture of second lumbar vertebra, initial encounter for closed fracture (03/20/19) Surgery Performed Operation Date: 03/20/19 07:45 Actual Procedures p L3-S1 laminectomy & L4-S1 posterior instrumented fusion w/ bone graft - Riky Chan MD Physical Therapy Treatment Note M2 PT-IP Current Condition Start: 03/20/19 17:58 Freq: NEEDED Status: Active Protocol: Document 03/20/19 16:10 [facility] (Rec: 03/20/19 18:17 AB [id number]) Physical Therapy Current Condition Current Condition Evaluation Date 03/20/19 Treatment Diagnosis s/p L4-S1 TLIF; L3-S1 lami; difficulty in walking Onset Date 03/20/19 Precautions Lumbar Precautions Log Roll,No Twisting,Limit Bending,Lifting Restriction of 10 lbs,Gait Belt above Incisional Area Other Precautions falls M3 PT-IP Subjective Start: 03/20/19 17:58 Freq: NEEDED Status: Active Protocol: Document 03/22/19 10:36 [facility] (Rec: 03/22/19 11:23 AB [id number]) Subjective Physical Therapy Visit Type Type Treatment Note Visit Start Time 10:36 Visit Stop Time 11:03 Total Visit Minutes 27 Number of WIRE DRAWING MACHINE TENDER Visits 0 Physical Therapy Visit Comments Patient Comments pt agreeable to do PT Therapy Pain Assessment Pain Present Pain Present Pain Reported Location Lower Back Scale Used pain scale not stated Pain Management Techniques Timing of Activity with Medications M4 PT-IP Mobility and Gait Start: 03/20/19 17:58 Freq: NEEDED Status: Active Protocol: Document 03/22/19 10:36 AB (Rec: 03/22/19 11:23 AB [id number]) PT-Bed Mobility Assessment Rolling Type of Rolling Log Rolling Level of Assist Standby Assistance Supine to Sit Supine to Sit Standby Assistance Sit to Supine Sit to Supine Standby Assistance PT-Transfer Assessment Sit to and From Stand Sit to and from Stand Standby Assistance,Contact Guard Assistance Equipment Transfer Assistive Device Gait Belt,Front Wheeled Walker Orthotic/Prosthetic Devices or Brace: No Transfers Transfer Destination Bed,Chair Transfer Technique Stand Step Pivot Transfer Ability Level of Assist Contact Guard Assistance,1 Person Assistance,Use of Upper Extremities Comments Mobility Comments pt requires max cues for all tasks for techniques and safety completed bed mobiltiy log roll supine<>sit x 3 sets and completed with SBA and cues Gait Assessment Gait Gait Assistance Required: Contact Guard Assist Distance (Feet) 150 Able to Maintain Weight Bearing Status Yes During Gait Assistive Devices Assistive Device Gait Belt,Front Wheeled Walker Orthotic/Prosthetic Devices or Brace: No Factors Limiting Gait Function Factors Limiting Gait Function Decreased Strength,Difficulty Following Directions,Limited Range of Motion,Pain,Poor Balance,Poor Safety Awareness Comments Gait Comments completed ambulation using FWW 150 +120 ft CGA and cues. pt is easily distracted and requires cues to focus on task . Stair Climbing Assessment Evaluation Level of Assist On Stairs Contact Guard Assistance,1 Person Assistance Devices Stair Climbing Assistive Devices Left Railing,Right Railing Technique/Endurance Stair Climbing Direction Ascend and Descend Stair Climbing Technique Step Over Step,Step to Step Number of Steps Climbed 3 Stair Climbing Set # Repetitions (reps) 3 Comments Stair Climbing Comments pt completed up/down 3 steps initially with bilateral rails and step to pattern CGA. completed again with R rail only and then L rail with step over step pattern requiring CGA and cues. M5 PT-IP Objective Assessments Start: 03/20/19 17:58 Freq: NEEDED Status: Active Protocol: Document 03/20/19 16:10 AB (Rec: 03/20/19 18:17 AB [id number]) Orientation Orientation/Cognition Level of Alertness Confusional State Orientation Name,Age,Birthday,Month,Date, Year,Situation Safety Awareness Decreased Safety Awareness Memory Description Short Term Impaired,Fdc Impaired Comments pt easily gets confused and needs cues with all tasks. pt has a diagnosis of dementia associated with alcoholism. Gross Range of Motion Lower Extremity ROM Assessment Within Functional Limits Strength Lower Extremity Strength Assessment Bilaterally Impaired Comments Strength Comments RLE: 4-/5 LLE: 3+/5 Muscle Tone Muscle Tone WNL Yes M6 PT-IP Treatment Start: 03/20/19 17:58 Freq: NEEDED Status: Active Protocol: Document 03/22/19 10:36 AB (Rec: 03/22/19 11:23 AB [id number]) Physical Therapy Treatment Education Education Provided Precautions,Safety M7 PT-IP Assessment and Plan Start: 03/20/19 17:58 Freq: NEEDED Status: Active Protocol: Document 03/22/19 10:36 AB (Rec: 03/22/19 11:23 AB [id number]) PT Summary Assessment and Plan Potential Rehabilitation Potential Good Summary Impairments Pain,ROM,Strength,Balance, Coordination,Sensation, Cognition,Bed Mobility, Transfers,Gait,Activity Tolerance Progress Towards Goals Progressing Toward Goals Assessment Summary pt progressing with mobility but continues to require cues with all tasks to maintain back precautions. pt lives alone and will not have much support at home. pt will still benefit from SNF rehab to improve independence with mobility prior to d/c home. Goals Bed Mobility Goal Independent Transfer Goal Standby Assistance,Front Wheeled Walker Gait Goal Standby Assistance,Front Wheel Walker Gait Distance 250 Other Goals up/down 5 steps with R rail ascending SBA Days to Meet Goals 10 Frequency of Treatment Frequency Of Treatment Twice a Day Treatment Plan Physical Therapy Treatment Plan Bed Mobility Training,Transfer Training,Gait Training, Therapeutic Exercise,Balance Retraining,Post Op Education, Discharge Planning,Hot or Cold Pack,Neuromuscular Re-ed, Coordination Retraining,Manual Therapy Other Recommendations and Next Treatment bed mobility, transfers, Focus ambulation Recommendations To Nursing Amount of Assist Needed 1 Person Assist Discharge Recommendations PT Discharge Recommendations SNF Rehab
--- NOTE | 2019-03-22 12:50 | CM.DPC ---
Addendum entered by ARIS Thomas 03/22/19 15:31: ADD: JOYCE received a call back from Ann at [facility] stating their Physicians review team determined that its too premature to make a final determination on SNF auth, therefore pt not approved or denied SNF yet but requesting updated PT/OT notes from today to be faxed to review when available. JOYCE called and updated MD and will wait until tomorrow to determine if SNF an option. BF Original Note: DCP Cont: Per Ortho MD, pt making good progress and pt has been hopeful to d/c home alone when discharged but family and therapy have concerns with pt d/c home alone due to his confusion and cognitive deficits. SNF recommendation. JOYCE updated MD that [facility] reviewing to determine if pt meets criteria for SNF. JOYCE faxed SNF clinicals and request to review to [facility] and called and spoke to assigned VALENTINA Juarez ([phone]) and she confirmed that clinicals were received but since pt's surgery was elective then clinicals must go to their Physicians Review team and Ann is sending them to the Physician to review now. Plan: JOYCE to follow for [facility] Physician review to determine if they will auth SNF at d/c. [facility] following for likely acceptance pending auth. ARIS Thomas
--- NOTE | 2019-03-22 14:22 | PT.IPTN ---
Current Diagnoses Spondylolisthesis, lumbar region (03/20/19) Spinal stenosis, lumbar region with neurogenic claudication (03/20/19) Wedge compression fracture of second lumbar vertebra, initial encounter for closed fracture (03/20/19) Surgery Performed Operation Date: 03/20/19 07:45 Actual Procedures p L3-S1 laminectomy & L4-S1 posterior instrumented fusion w/ bone graft - Riky Chan MD Physical Therapy Treatment Note M2 PT-IP Current Condition Start: 03/20/19 17:58 Freq: NEEDED Status: Active Protocol: Document 03/20/19 16:10 AB (Rec: 03/20/19 18:17 AB [id number]) Physical Therapy Current Condition Current Condition Evaluation Date 03/20/19 Treatment Diagnosis s/p L4-S1 TLIF; L3-S1 lami; difficulty in walking Onset Date 03/20/19 Precautions Lumbar Precautions Log Roll,No Twisting,Limit Bending,Lifting Restriction of 10 lbs,Gait Belt above Incisional Area Other Precautions falls M3 PT-IP Subjective Start: 03/20/19 17:58 Freq: NEEDED Status: Active Protocol: Document 03/22/19 14:22 MT (Rec: 03/22/19 14:58 MT [email or web address]) Subjective Physical Therapy Visit Type Type Treatment Note Visit Start Time 14:22 Visit Stop Time 14:35 Total Visit Minutes 13 Number of HOUSING SPECIALIST Visits 0 Physical Therapy Visit Comments Patient Comments Pt was agreeable to participate in physical therapy session Therapy Pain Assessment Pain Present Pain Present Denied Pain M4 PT-IP Mobility and Gait Start: 03/20/19 17:58 Freq: NEEDED Status: Active Protocol: Document 03/22/19 14:22 MT (Rec: 03/22/19 14:58 MT [email or web address]) PT-Bed Mobility Assessment Rolling Type of Rolling Log Rolling,Roll to Left Level of Assist Standby Assistance,1 Person Assistance Supine to Sit Supine to Sit Standby Assistance,1 Person Assistance Sit to Supine Sit to Supine Standby Assistance,1 Person Assistance Scooting Scooting to Edge of Bed Standby Assistance PT-Transfer Assessment Sit to and From Stand Sit to and from Stand Standby Assistance,1 Person Assistance,Use of Upper Extremities Equipment Transfer Assistive Device None,Gait Belt Transfers Transfer Destination Bed,Chair Transfer Technique Stand Step Pivot Transfer Ability Level of Assist Standby Assistance,1 Person Assistance Comments Mobility Comments pt demonstrates ability to perform bed mobiltiy and transfers with SBA and cueing for safety and maintaining back precautions. Pt was asked to perform multiple sit< >supine bed mobility in order to assess pt's independence with logrolling for maintaining precautions and safety during bed mobility and assess carryover with learning from previous PT session, but pt was unable to demonstrate adherance to the task without frequent cueing from therapist. Gait Assessment Gait Gait Assistance Required: Contact Guard Assist,1 Person Assist Distance (Feet) 200 Able to Maintain Weight Bearing Status Yes During Gait Assistive Devices Assistive Device None,Gait Belt Orthotic/Prosthetic Devices or Brace: No Gait Deviations General Gait Pattern Decreased Stride Length,Flexed Trunk Factors Limiting Gait Function Factors Limiting Gait Function Decreased Strength,Difficulty Following Directions,Poor Balance,Poor Safety Awareness Comments Gait Comments Pt ambulated ~200ft without use of 2WW and CGA. Pt required frequent cueing for staying focused on task and for safety. Pt self-reported that he had no pain and was not feeling fatigued following activity. M5 PT-IP Objective Assessments Start: 03/20/19 17:58 Freq: NEEDED Status: Active Protocol: Document 03/20/19 16:10 AB (Rec: 03/20/19 18:17 AB [id number]) Orientation Orientation/Cognition Level of Alertness Confusional State Orientation Name,Age,Birthday,Month,Date, Year,Situation Safety Awareness Decreased Safety Awareness Memory Description Short Term Impaired,Alf Impaired Comments pt easily gets confused and needs cues with all tasks. pt has a diagnosis of dementia associated with alcoholism. Gross Range of Motion Lower Extremity ROM Assessment Within Functional Limits Strength Lower Extremity Strength Assessment Bilaterally Impaired Comments Strength Comments RLE: 4-/5 LLE: 3+/5 Muscle Tone Muscle Tone WNL Yes M6 PT-IP Treatment Start: 03/20/19 17:58 Freq: NEEDED Status: Active Protocol: Document 03/22/19 14:22 MT (Rec: 03/22/19 14:58 MT [email or web address]) Physical Therapy Treatment Education Education Provided Precautions,Safety M7 PT-IP Assessment and Plan Start: 03/20/19 17:58 Freq: NEEDED Status: Active Protocol: Document 03/22/19 14:22 MT (Rec: 03/22/19 14:58 MT [email or web address]) PT Summary Assessment and Plan Potential Rehabilitation Potential Good Summary Impairments Pain,ROM,Strength,Balance, Coordination,Sensation, Cognition,Bed Mobility, Transfers,Gait,Activity Tolerance Progress Towards Goals Progressing Toward Goals Assessment Summary Pt demonstrated ability to ambulate without use of AD CGA , demonstrating decreased need for assistance. He does require frequent cueing with both functional mobility and gait in order to maintain his back precautions and to ensure pt safety. Pt's lack of carry over for learning and adherance for precautions and decreased safety awareness makes this pt a candidate for d/c to a SNF or at home with 24/7 assistance to ensure pt's safety. Goals Bed Mobility Goal Independent,Standby Assistance Transfer Goal Standby Assistance Gait Goal Standby Assistance Gait Distance 250 Other Goals up/down 5 steps with R rail ascending SBA Days to Meet Goals 10 Frequency of Treatment Frequency Of Treatment Twice a Day Treatment Plan Physical Therapy Treatment Plan Bed Mobility Training,Transfer Training,Gait Training, Therapeutic Exercise,Balance Retraining,Post Op Education, Discharge Planning,Hot or Cold Pack,Neuromuscular Re-ed, Coordination Retraining,Manual Therapy Other Recommendations and Next Treatment bed mobility, transfers, Focus ambulation without AD Recommendations To Nursing Amount of Assist Needed 1 Person Assist Discharge Recommendations PT Discharge Recommendations Home with Assistance,Home with 24/7 Assist,Home Health,SNF Rehab
--- NOTE | 2019-03-22 15:40 | PC.NURSE ---
Ortho/LOC: Pt has been disoriented most of the day. Forgetting he ever had surgery, thinks he is at home and wanting to know why staff are in his room. Doesn't follow lami precautions unless someone is with him to keep him cued and reinforcing his blt. He simply forgets. Otherwise he has been voiding, denies any problems tolerating diet. Declined pain med each time offered. Back is sore but tolerable to pt. Has needed someone with him all day. Visiting with his friend right now. Cont w/poc.
--- NOTE | 2019-03-22 16:00 | OT.IP.TRT ---
Current Diagnoses Spondylolisthesis, lumbar region (03/20/19) Spinal stenosis, lumbar region with neurogenic claudication (03/20/19) Wedge compression fracture of second lumbar vertebra, initial encounter for closed fracture (03/20/19) Surgery Performed Operation Date: 03/20/19 07:45 Actual Procedures p L3-S1 laminectomy & L4-S1 posterior instrumented fusion w/ bone graft - Riky Chan MD Occupational Therapy Treatment Note M2 OT-IP Current Condition Start: 03/21/19 17:28 Freq: Status: Active Protocol: Document 03/21/19 16:30 [facility] (Rec: 03/21/19 17:50 [facility] [id number]) Occupational Therapy Current Condition Current Condition Evaluation Date 03/21/19 Treatment Diagnosis s/p L3-S1 Lami, L4-S1 TLIF decreased mobility Diagnosis Onset Date 03/20/19 Post Operative Precautions Abdominal Surgery Precautions Log Roll,Lifting Restrictions, Gait Belt above Incisional Area Weight Bearing Status Weight Bearing Status Weight Bear as Tolerated M3 OT- IP Subjective and Pain Start: 03/21/19 17:28 Freq: Status: Active Protocol: Document 03/22/19 15:40 [facility] (Rec: 03/22/19 18:03 [facility] [id number]) OT- Subjective Occupational Therapy Visit Type Type Treatment Note Visit Start Time 15:40 Visit Stop Time 16:49 Total Visit Minutes 51 Occupational Therapy Visit Comments Patient Comments Pt had a friend, Shashi stopped by to see him and that will be taking him home if cleared to go home. Shashi with pt's consent trying to find someone to stay with the pt. Patient/Caregiver Goals To go home. OT Pain Assessment Pain When Pain Assessed At Rest Pain Present Pain Present Denied Pain M4 OT- IP ADL's Start: 03/21/19 17:28 Freq: Status: Active Protocol: Document 03/22/19 15:40 [facility] (Rec: 03/22/19 18:03 [facility] [id number]) OT ADL-Grooming General Evaluation Grooming Ability Independent Areas Needing Assistance Retrieving/Set-up of Grooming Items Comments OT Grooming Comments Pt mainly just needing reminders to recall that the grooming items are from the hospital and for him to use. OT ADL-Dressing General Eval Upper Body Dressing Ability Independent Lower Body Dressing Ability Standby Assistance Comments OT Dressing Comments MAX vc to follow lower body dressing for back precautions. With cues able to cross his legs over to initiate pants over his feet and able to tristin /doff socks. At this time pt does not remember that he had surgery or where he lives and will not remember how to use any adaptive dressing equipment, therefore will not be teaching him any lower body equipment at this time. OT ADL-Bathing Bathing Type Bathing Type Shower General Evaluation Bathing Ability Moderate Assistance Areas Needing Assistance Retrieving/Setting Up Items Devices Bathing Equipment Shower Chair without Arms,Grab Bars Comments OT Bathing Comments REBECCA to help wash wash his back and MAX VC for back precautions not to twist in the shower. Pt needing cues to sit down on the shower chair in order to wash his feet. M5 OT- IP IADL's Start: 03/21/19 17:28 Freq: Status: Active Protocol: Document 03/21/19 16:30 [facility] (Rec: 03/21/19 17:50 [facility] [id number]) OT-Instrumental Activities of Daily Living Home Safety Awareness Home Safety Comments At this time pt unaware that he is in the hospital or even that he had back surgery. Pt lives home alone, at this time no safe to go home. M6 OT- IP Functional Cognition Start: 03/21/19 17:28 Freq: Status: Active Protocol: Document 03/22/19 15:40 [facility] (Rec: 03/22/19 18:03 [facility] [id number]) Cognitive Factors Limiting Selfcare Function Cognitive Ability Level of Alertness Alert,Confusional State Patient Orientation Name Attention Span Ability Capable of Focused Attention, Unable to Sustain Attention Ability to Follow Commands Able to Follow One Step Commands with Increased Time, Able to Follow One Step Commands with Repetition Memory Description Immediate Impaired,Short Term Impaired Safety Awareness Decreased Recall of Precautions,Decreased Ability to Apply Precautions, Underestimates Need for Assistance Problem Solving Ability Unable to Identify Errors, Needs Assist to Identify Solutions Executive Function Ability Unable to Switch Focus,Unable to Filter Distractions,Unable to Make Plans,Unable to Organize Plans,Unable to Remember Details Cognitive Comments Cognitive Assessment Comments Pt does not remember that he had surgery, where he lives, and not able to recall any back precautions even after repetition and multiple cues. Nursing aid able to post signs in his room to help remind him of his back precautions. Pt on occasion able to state not able to lift . M7 OT- IP Mobility and Balance Start: 03/21/19 17:28 Freq: Status: Active Protocol: Document 03/22/19 15:40 [facility] (Rec: 03/22/19 18:03 [facility] [id number]) OT-Transfer Assessment Sit to and From Stand Sit to and from Stand Standby Assistance Transfers Transfer Ability Standby Assistance,Minimal Assistance Technique Transfer Destination Bed,Shower Stall Transfer Technique Stand Step Pivot Devices Transfer Assistive Devices Gait Belt Comments Mobility Comments Pt able to get up from the recliner with SBA and walk in the room but needing MAX vc to follow back precautions as tends to twist and is highly distracted. Pt while trying to get into the shower needing REBECCA for balance and use of grab bar to step over the small threshold. OT- Balance Assessment Sitting Balance and Reactions Static Sitting Balance Ability Normal Dynamic Sitting Balance Ability Normal Standing Balance and Reactions Static Standing Balance Ability Good Dynamic Standing Balance Ability Fair M8 OT- IP Objective Assessments Start: 03/21/19 17:28 Freq: Status: Active Protocol: Document 03/21/19 16:30 [facility] (Rec: 03/21/19 17:50 [facility] [id number]) OT Gross Range of Motion Upper Extremity Range of Motion Assessment Within Functional Limits OT Strength Upper Extremity Strength Assessment Within Functional Limits M9 OT- IP Assessment and Plan Start: 03/21/19 17:28 Freq: Status: Active Protocol: Document 03/22/19 15:40 [facility] (Rec: 03/22/19 18:03 [facility] [id number]) OT Summary Assessment and Plan Potential Rehabilitation Potential Good Analytic Complexity at Evaluation Low Summary OT Impairments Balance,Functional Cognition, Functional Mobility,Dressing, Toileting,Bathing,Toilet Transfers,Shower Transfers Progress Towards Goals Slow Progress due to Cognition Assessment Summary At this time due to pt's poor safety awareness as unable to follow back precautions is a high fall risk would benefit from continued training and education for back precaution needs. Pt able to recall at times with cues for 1-2 back precautions which is an improvement from yesterday. Therefore, pt not safe to go home and would need 24/ supervision or need to go to skilled rehab to continue to educate pt for incorporation of back precautions for ADL , IADL and functional mobility needs. Goals Grooming Goal Independent Dressing Goal Independent Toileting Goal Independent Bathing Goal Independent Toilet Transfer Goal Independent Shower Transfer Goal Independent Patient/Caregiver Education Goal Demonstrate Post-Op Precautions,Caregiver Independent Assisting Patient Days to Meet Goals 10 Frequency of Treatment Frequency Of Treatment Once a Day Treatment Plan OT Treatment Plan ADL Training,Functional Cognition Training,Functional Mobility,Patient/Family Education,Discharge Planning Other Treatment Recommendations and Next Pt to recall back precautions. Treatment Focus Pt to be independent with good safety for back precautions. Discharge Recommendations OT Discharge Recommendations Home with 24/7 Assist,SNF Rehab Other Discharge Recommendations Pt lives alone and has no one to stay with him at this time.
[2019-03-22] MEDS: SIMVASTATIN 20 MG TABLET PO (17:09)
--- NOTE | 2019-03-22 17:49 | PC.NURSE ---
OT/PT help pt shower , needs cuing and he went for a walk in the hallway with staff
[2019-03-22] MEDS: GABAPENTIN 300 MG CAPSULE PO (20:25)
[2019-03-22] MEDS: SENNOSIDES 8.6 MG TABLET 17.2 MG PO (20:26)
--- NOTE | 2019-03-22 20:46 | PC.NURSE ---
Evening shift note: Fall precautions and 1:1 staff observation was continued for the entirety of this shift for patient safety and fall prevention. At this time remains restless and impulsive and still needs frequent redirection and verbal cues. Slept 1 hour this shift. During initial assessment, the patient was alert and oriented to self and date. Later in the the shift at 2100 is oriented to self, date, and place, but not to situation. He thinks he has not had his surgery. The patient showered during Occupational Therapy visit and tolerated that well. The patient states his back pain is better than it has been. No PRN meds given for pain. Patient is voiding adequately and no BM this shift. Vital signs are stable and patient safety maintained.
[2019-03-23] VITALS (7 sets, daily range): BP systolic 116–151; BP diastolic 67–85; PULSE 61–84; RESP 14–18; TEMP 36.5–36.7; O2SAT 96–98
--- NOTE | 2019-03-23 07:27 | P.PN_ITS ---
Subjective Subjective Date Patient Seen: 03/23/19 Time Patient Seen: 07:27 Interval history: He is doing well. Minimal pain. Up and ambulating independently. However, per Physical therapy he is requiring constant cues for cracked mobility and safety. Exam Vital Signs (past 8 hours): - 03/22/19 23:57 03/23/19 02:07 03/23/19 04:32 Temperature 99.0 F 98.1 F Pulse Rate 60 61 Respiratory Rate 16 14 Blood Pressure 154/78 H 149/75 H Pulse Oximetry 91 96 Oxygen Delivery Method Room Air Oxygen Flow Rate 0 Const Orientation: alert and oriented x3 Back/Spine/Pelvis Other: CDI. 5/5 motor both lower extremities. Objective Labs Result Diagrams: 03/21/19 05:00 03/21/19 05:00 Assessment & Plan Post-op Postoperative Procedures: Procedures Operation Date: 03/20/19 07:45 Actual Procedures Side Surgeon p L3-S1 laminectomy & L4-S1 posterior instrumented fusion w/ bone graft Riky Chan MD he has recovered well after surgery, but is still having some postoperative confusion. Physical therapy thought he would best benefit with either full-time help at home or custodial. We are still waiting on insurance authorization at this point. However, either way, he should be stable for discharge today. Quality VTE Deep Vein Thrombosis/Pulmonary Embolism Present on Admission: No
--- NOTE | 2019-03-23 07:53 | CM.DPC ---
Addendum entered by ARIS Thomas 03/23/19 16:05: ADD: Per Gordon, pt does not meet criteria for SNF auth. JOYCE called pt's friend Freda and confirmed that she can provide transport home tomorrow after work around 1500 and stay with pt for 5 days but not available to stay with pt today. JOYCE met bedside with pt and updated on above and pt states he feels frustrated he can't go home today and is appreciative of Freda staying with him tomorrow for a few days but was hopeful to go home today. JOYCE updated MD who states due to pt's need for 27/12 and SNF insurance denial then pt will d/c home via friend Freda tomorrow. BF Original Note: DCP Cont: Per , pt stable for d/c today to either SNF pending insurance auth or home. JOYCE received a msg from pt's local supportive friend Shashi ([phone]) stating he has contacted their mutual friend Freda ([phone]) who can likely stay with the pt for a few days starting 03/25/19 if pt's insurance does not auth SNF. although pt currently does not have anyone to stay with him for 2 days if he discharges home today. JOYCE faxed PT/OT/MD updated notes to Gordon Juarez this morning for ongoing Physicians review for final decision on SNF today. Plan: JOYCE to follow closely for Leyva final review to determine if pt can d/c to SNF vs home with friends to assist. ARIS Thomas
[2019-03-23] MEDS: DOCUSATE 100 MG CAPSULE PO ×2 (08:28→20:03)
[2019-03-23] MEDS: CELECOXIB 200 MG CAPSULE PO ×2 (08:28→20:04)
[2019-03-23] MEDS: ASPIRIN EC 81 MG TABLET PO (08:28)
[2019-03-23] MEDS: hydroCHLOROthiazide 25 MG TABLET PO (08:28)
[2019-03-23] MEDS: ACETAMINOPHEN 325 MG TABLET 650 MG PO (08:29)
--- NOTE | 2019-03-23 10:46 | PT.IPTN ---
Current Diagnoses Spondylolisthesis, lumbar region (03/20/19) Spinal stenosis, lumbar region with neurogenic claudication (03/20/19) Wedge compression fracture of second lumbar vertebra, initial encounter for closed fracture (03/20/19) Surgery Performed Operation Date: 03/20/19 07:45 Actual Procedures p L3-S1 laminectomy & L4-S1 posterior instrumented fusion w/ bone graft - Riky Chan MD Physical Therapy Treatment Note M2 PT-IP Current Condition Start: 03/20/19 17:58 Freq: NEEDED Status: Active Protocol: Document 03/20/19 16:10 AB (Rec: 03/20/19 18:17 AB [id number]) Physical Therapy Current Condition Current Condition Evaluation Date 03/20/19 Treatment Diagnosis s/p L4-S1 TLIF; L3-S1 lami; difficulty in walking Onset Date 03/20/19 Precautions Lumbar Precautions Log Roll,No Twisting,Limit Bending,Lifting Restriction of 10 lbs,Gait Belt above Incisional Area Other Precautions falls M3 PT-IP Subjective Start: 03/20/19 17:58 Freq: NEEDED Status: Active Protocol: Document 03/23/19 10:46 AB (Rec: 03/23/19 12:47 AB [id number]) Subjective Physical Therapy Visit Type Type Treatment Note Visit Start Time 10:46 Visit Stop Time 11:19 Total Visit Minutes 33 Number of LICENSED PHYSICAL THERAPIST ASSISTANT Visits 0 Physical Therapy Visit Comments Patient Comments pt agreeable to do PT Therapy Pain Assessment Pain Present Pain Present Denied Pain M4 PT-IP Mobility and Gait Start: 03/20/19 17:58 Freq: NEEDED Status: Active Protocol: Document 03/23/19 10:46 AB (Rec: 03/23/19 12:47 AB [id number]) PT-Bed Mobility Assessment Rolling Type of Rolling Log Rolling Level of Assist Standby Assistance Supine to Sit Supine to Sit Standby Assistance,1 Person Assistance Sit to Supine Sit to Supine Standby Assistance,1 Person Assistance Scooting Scooting to Edge of Bed Standby Assistance PT-Transfer Assessment Sit to and From Stand Sit to and from Stand Standby Assistance Equipment Transfer Assistive Device None,Gait Belt Transfers Transfer Destination Bed Transfer Technique Stand Step Pivot Transfer Ability Level of Assist Standby Assistance Comments Mobility Comments bed mobility training conducted x 8 reps. pt initially requires cues but able to complete without cues towards the end and completed 2 reps without cues. Gait Assessment Gait Gait Assistance Required: Standby Assistance Distance (Feet) 250 Able to Maintain Weight Bearing Status Yes During Gait Assistive Devices Assistive Device None,Gait Belt Orthotic/Prosthetic Devices or Brace: No Gait Deviations General Gait Pattern Flexed Trunk Factors Limiting Gait Function Factors Limiting Gait Function Decreased Strength,Difficulty Following Directions,Limited Range of Motion,Pain,Poor Balance,Poor Safety Awareness Stair Climbing Assessment Evaluation Level of Assist On Stairs Standby Assistance,Contact Guard Assistance,Minimal Assistance Devices Stair Climbing Assistive Devices None,Left Railing Technique/Endurance Stair Climbing Direction Ascend and Descend Stair Climbing Technique Step to Step Number of Steps Climbed 3 Stair Climbing Set # Repetitions (reps) 4 Comments Stair Climbing Comments completed up/down steps using bilateral rails SBA; completed again using just R rail and then just R rail SBA. completed again without rail requiring CGA to min A and cues M5 PT-IP Objective Assessments Start: 03/20/19 17:58 Freq: NEEDED Status: Active Protocol: Document 03/20/19 16:10 AB (Rec: 03/20/19 18:17 AB [id number]) Orientation Orientation/Cognition Level of Alertness Confusional State Orientation Name,Age,Birthday,Month,Date, Year,Situation Safety Awareness Decreased Safety Awareness Memory Description Short Term Impaired,Staple Laster Impaired Comments pt easily gets confused and needs cues with all tasks. pt has a diagnosis of dementia associated with alcoholism. Gross Range of Motion Lower Extremity ROM Assessment Within Functional Limits Strength Lower Extremity Strength Assessment Bilaterally Impaired Comments Strength Comments RLE: 4-/5 LLE: 3+/5 Muscle Tone Muscle Tone WNL Yes M6 PT-IP Treatment Start: 03/20/19 17:58 Freq: NEEDED Status: Active Protocol: Document 03/23/19 10:46 AB (Rec: 03/23/19 12:47 AB [id number]) Physical Therapy Treatment Education Education Provided Precautions,Safety M7 PT-IP Assessment and Plan Start: 03/20/19 17:58 Freq: NEEDED Status: Active Protocol: Document 03/23/19 10:46 AB (Rec: 03/23/19 12:47 AB [id number]) PT Summary Assessment and Plan Potential Rehabilitation Potential Good Summary Impairments Pain,ROM,Strength,Balance, Coordination,Sensation,Tone, Cognition,Bed Mobility, Transfers,Gait,Activity Tolerance Progress Towards Goals Progressing Toward Goals Assessment Summary pt progressing well and able to recall techniques better today compared to yesterdays. pt is more aware of his safety today but still requires cues. pt will still require 24/7 assist due to decrease safety awareness and requires constant cues to maintain back precautions and safety. pt will benefit from SNF rehab. Goals Bed Mobility Goal Independent Transfer Goal Independent Gait Goal Independent Gait Distance 300 Other Goals up/down 5 steps with R rail ascending mod I Days to Meet Goals 10 Frequency of Treatment Frequency Of Treatment Twice a Day Treatment Plan Physical Therapy Treatment Plan Bed Mobility Training,Transfer Training,Gait Training, Therapeutic Exercise,Balance Retraining,Post Op Education, Discharge Planning,Hot or Cold Pack,Neuromuscular Re-ed, Coordination Retraining,Manual Therapy Other Recommendations and Next Treatment bed mobility, transfers, Focus ambulation without AD Recommendations To Nursing Amount of Assist Needed 1 Person Assist Discharge Recommendations PT Discharge Recommendations Home with 24/7 Assist,Home Health,SNF Rehab
--- NOTE | 2019-03-23 12:00 | OT.IP.TRT ---
Current Diagnoses Spondylolisthesis, lumbar region (03/20/19) Spinal stenosis, lumbar region with neurogenic claudication (03/20/19) Wedge compression fracture of second lumbar vertebra, initial encounter for closed fracture (03/20/19) Surgery Performed Operation Date: 03/20/19 07:45 Actual Procedures p L3-S1 laminectomy & L4-S1 posterior instrumented fusion w/ bone graft - Riky Chan MD Occupational Therapy Treatment Note M2 OT-IP Current Condition Start: 03/21/19 17:28 Freq: Status: Active Protocol: Document 03/21/19 16:30 [facility] (Rec: 03/21/19 17:50 [facility] [email or web address]) Occupational Therapy Current Condition Current Condition Evaluation Date 03/21/19 Treatment Diagnosis s/p L3-S1 Lami, L4-S1 TLIF decreased mobility Diagnosis Onset Date 03/20/19 Post Operative Precautions Abdominal Surgery Precautions Log Roll,Lifting Restrictions, Gait Belt above Incisional Area Weight Bearing Status Weight Bearing Status Weight Bear as Tolerated M3 OT- IP Subjective and Pain Start: 03/21/19 17:28 Freq: Status: Active Protocol: Document 03/23/19 12:54 [facility] (Rec: 03/23/19 13:18 [facility] [email or web address]) OT- Subjective Occupational Therapy Visit Type Type Treatment Note Visit Start Time 09:17 Visit Stop Time 09:32 Total Visit Minutes 45 Notes Pt also seen from [id number] split session. Occupational Therapy Visit Comments Patient Comments Pt agreeable to talk and get up for OT treatment. OT Pain Assessment Pain When Pain Assessed At Rest Pain Present Pain Present Denied Pain M4 OT- IP ADL's Start: 03/21/19 17:28 Freq: Status: Active Protocol: Document 03/23/19 12:54 [facility] (Rec: 03/23/19 13:18 [facility] [email or web address]) OT ADL-Toileting Comments OT Toileting Comments Spoke at length for pt toileting needs , suggested it would be best to stand for wiping in order to adhere to back precautions. Pt states he usually stands to wipe anyways. OT ADL-Bathing Comments OT Bathing Comments At this time, needs to use a shower chair for safety. Educated best to sit so able to lift his legs up to wash or use of long handled shower brush. M5 OT- IP IADL's Start: 03/21/19 17:28 Freq: Status: Active Protocol: Document 03/21/19 16:30 [facility] (Rec: 03/21/19 17:50 [facility] [email or web address]) OT-Instrumental Activities of Daily Living Home Safety Awareness Home Safety Comments Went over home situations at home and to see what pt would do. Educated pt best to have someone assist to care for his dog, or better to continue to have the dog stay with his daughter. To keep all items at waist level so avoid bending. To have assist for laundry or place a chair by the dryer to be able to sit to take the laundry out. Ask neighbor to care for garbage and yard work as needed. M6 OT- IP Functional Cognition Start: 03/21/19 17:28 Freq: Status: Active Protocol: Document 03/23/19 12:54 [facility] (Rec: 03/23/19 13:18 [facility] [email or web address]) Cognitive Factors Limiting Selfcare Function Cognitive Ability Level of Alertness Alert,Confusional State Patient Orientation Name Attention Span Ability Capable of Focused Attention, Unable to Sustain Attention Ability to Follow Commands Able to Follow One Step Commands with Increased Time, Able to Follow One Step Commands with Repetition Memory Description Immediate Intact,Short Term Impaired Safety Awareness Decreased Recall of Precautions,Decreased Ability to Apply Precautions, Underestimates Need for Assistance Problem Solving Ability Unable to Identify Errors, Needs Assist to Identify Solutions Executive Function Ability Unable to Switch Focus,Unable to Filter Distractions,Unable to Make Plans,Unable to Organize Plans,Unable to Remember Details Cognitive Comments Cognitive Assessment Comments Pt now able to recall that he had back surgery 30% of the time. Pt able to recall back precautions, but having to look at the signs posted in his room. Talked at length with pt on his daily routine and and what not to do. Pt does not realize will not be able to his laundry, driving, take out the garbage, and care for his dog due to back precautions of make modifictions. Spoke with pt regarding alternatives, ask for help , and to stop and think first before going ahead to respond to doing his normal routine. M7 OT- IP Mobility and Balance Start: 03/21/19 17:28 Freq: Status: Active Protocol: Document 03/23/19 12:54 [facility] (Rec: 03/23/19 13:18 [facility] [email or web address]) OT-Transfer Assessment Comments Mobility Comments Had pt verbally states his log rolling techniques and able to recall how to get out of bed. OT- Balance Assessment Sitting Balance and Reactions Static Sitting Balance Ability Normal Dynamic Sitting Balance Ability Normal Standing Balance and Reactions Static Standing Balance Ability Good Dynamic Standing Balance Ability Fair M8 OT- IP Objective Assessments Start: 03/21/19 17:28 Freq: Status: Active Protocol: Document 03/21/19 16:30 [facility] (Rec: 03/21/19 17:50 [facility] [email or web address]) OT Gross Range of Motion Upper Extremity Range of Motion Assessment Within Functional Limits OT Strength Upper Extremity Strength Assessment Within Functional Limits M9 OT- IP Assessment and Plan Start: 03/21/19 17:28 Freq: Status: Active Protocol: Document 03/22/19 15:40 [facility] (Rec: 03/22/19 18:03 [facility] [id number]) OT Summary Assessment and Plan Potential Rehabilitation Potential Good Analytic Complexity at Evaluation Low Summary OT Impairments Balance,Functional Cognition, Functional Mobility,Dressing, Toileting,Bathing,Toilet Transfers,Shower Transfers Progress Towards Goals Slow Progress due to Cognition Assessment Summary Noted pt having some improvement with safety awareness, now at times realizes had back surgery, or if given cues able to figure out that he has had back surgery. Pt now able to look over at signs posted in the room for back precautions. Pt still not able to realize that some of his daily needs at home would be breaking his back precautions. Therefore, pt not safe to go home and would need 24/7 supervision or need to go to skilled rehab to continue to educate pt for incorporation of back precautions for ADL , IADL and functional mobility needs. Goals Grooming Goal Independent Dressing Goal Independent Toileting Goal Independent Bathing Goal Independent Toilet Transfer Goal Independent Shower Transfer Goal Independent Patient/Caregiver Education Goal Demonstrate Post-Op Precautions,Caregiver Independent Assisting Patient Days to Meet Goals 10 Frequency of Treatment Frequency Of Treatment Once a Day Treatment Plan OT Treatment Plan ADL Training,Functional Cognition Training,Functional Mobility,Patient/Family Education,Discharge Planning Other Treatment Recommendations and Next Pt to recall back precautions. Treatment Focus Pt to be independent with good safety for back precautions. Discharge Recommendations OT Discharge Recommendations Home with 24/7 Assist,SNF Rehab Other Discharge Recommendations Pt lives alone and has no one to stay with him at this time.
--- NOTE | 2019-03-23 15:29 | PT.IPTN ---
Current Diagnoses Spondylolisthesis, lumbar region (03/20/19) Spinal stenosis, lumbar region with neurogenic claudication (03/20/19) Wedge compression fracture of second lumbar vertebra, initial encounter for closed fracture (03/20/19) Surgery Performed Operation Date: 03/20/19 07:45 Actual Procedures p L3-S1 laminectomy & L4-S1 posterior instrumented fusion w/ bone graft - Riky Chan MD Physical Therapy Treatment Note M2 PT-IP Current Condition Start: 03/20/19 17:58 Freq: NEEDED Status: Active Protocol: Document 03/20/19 16:10 [facility] (Rec: 03/20/19 18:17 [facility] [id number]) Physical Therapy Current Condition Current Condition Evaluation Date 03/20/19 Treatment Diagnosis s/p L4-S1 TLIF; L3-S1 lami; difficulty in walking Onset Date 03/20/19 Precautions Lumbar Precautions Log Roll,No Twisting,Limit Bending,Lifting Restriction of 10 lbs,Gait Belt above Incisional Area Other Precautions falls M3 PT-IP Subjective Start: 03/20/19 17:58 Freq: NEEDED Status: Active Protocol: Document 03/23/19 15:29 [facility] (Rec: 03/23/19 16:35 [facility] [email or web address]) Subjective Physical Therapy Visit Type Type Treatment Note Visit Start Time 15:29 Visit Stop Time 16:03 Total Visit Minutes 34 Number of CONTRACT GRAPHIC DESIGNER Visits 0 Physical Therapy Visit Comments Patient Comments pt agreeable to do PT Therapy Pain Assessment Pain Present Pain Present Denied Pain M4 PT-IP Mobility and Gait Start: 03/20/19 17:58 Freq: NEEDED Status: Active Protocol: Document 03/23/19 15:29 [facility] (Rec: 03/23/19 16:35 [facility] [email or web address]) PT-Bed Mobility Assessment Rolling Type of Rolling Log Rolling Level of Assist Standby Assistance Supine to Sit Supine to Sit Standby Assistance,1 Person Assistance Sit to Supine Sit to Supine Standby Assistance,1 Person Assistance PT-Transfer Assessment Sit to and From Stand Sit to and from Stand Standby Assistance Equipment Transfer Assistive Device None,Gait Belt Transfers Transfer Destination Toilet Transfer Technique pt ambulated to the toilet Transfer Ability Level of Assist Standby Assistance,1 Person Assistance Comments Mobility Comments Bed mobility training conducted x 6 reps. pt continues to require cues to recall techniques and back precautions. Gait Assessment Gait Gait Assistance Required: Standby Assistance Distance (Feet) 300 Able to Maintain Weight Bearing Status Yes During Gait Assistive Devices Assistive Device None,Gait Belt Orthotic/Prosthetic Devices or Brace: No Gait Deviations General Gait Pattern Antalgic Factors Limiting Gait Function Factors Limiting Gait Function Limited Range of Motion,Poor Balance,Poor Safety Awareness Stair Climbing Assessment Evaluation Level of Assist On Stairs Standby Assistance,1 Person Assistance Devices Stair Climbing Assistive Devices Left Railing,Right Railing Technique/Endurance Stair Climbing Direction Ascend and Descend Stair Climbing Technique Step to Step Number of Steps Climbed 3 Stair Climbing Set # Repetitions (reps) 1 M5 PT-IP Objective Assessments Start: 03/20/19 17:58 Freq: NEEDED Status: Active Protocol: Document 03/20/19 16:10 [facility] (Rec: 03/20/19 18:17 [facility] [id number]) Orientation Orientation/Cognition Level of Alertness Confusional State Orientation Name,Age,Birthday,Month,Date, Year,Situation Safety Awareness Decreased Safety Awareness Memory Description Short Term Impaired,Penitentiary Impaired Comments pt easily gets confused and needs cues with all tasks. pt has a diagnosis of dementia associated with alcoholism. Gross Range of Motion Lower Extremity ROM Assessment Within Functional Limits Strength Lower Extremity Strength Assessment Bilaterally Impaired Comments Strength Comments RLE: 4-/5 LLE: 3+/5 Muscle Tone Muscle Tone WNL Yes M6 PT-IP Treatment Start: 03/20/19 17:58 Freq: NEEDED Status: Active Protocol: Document 03/23/19 15:29 [facility] (Rec: 03/23/19 16:35 [facility] [email or web address]) Physical Therapy Treatment Education Education Provided Precautions,Safety M7 PT-IP Assessment and Plan Start: 03/20/19 17:58 Freq: NEEDED Status: Active Protocol: Document 03/23/19 15:29 [facility] (Rec: 03/23/19 16:35 [facility] [email or web address]) PT Summary Assessment and Plan Potential Rehabilitation Potential Good Summary Impairments ROM,Strength,Balance,Cognition ,Bed Mobility,Transfers,Gait, Activity Tolerance Progress Towards Goals Progressing Toward Goals Assessment Summary pt requiring SBA with mobility without AD but continues to require cues for safety and to adhere to back precautions. pt will need 24/7 assist. Goals Bed Mobility Goal Independent Transfer Goal Independent Gait Goal Independent Gait Distance 300 Other Goals up/down 5 steps with R rail ascending mod I Days to Meet Goals 10 Frequency of Treatment Frequency Of Treatment Twice a Day Treatment Plan Physical Therapy Treatment Plan Bed Mobility Training,Transfer Training,Gait Training, Therapeutic Exercise,Balance Retraining,Post Op Education, Discharge Planning,Hot or Cold Pack,Neuromuscular Re-ed, Coordination Retraining,Manual Therapy Other Recommendations and Next Treatment bed mobility, transfers, Focus ambulation without AD Recommendations To Nursing Amount of Assist Needed 1 Person Assist Discharge Recommendations PT Discharge Recommendations Home with 27/12 Assist,Home Health,SNF Rehab
--- NOTE | 2019-03-23 16:09 | PC.NURSE ---
Ortho: Tylenol for pain was effective, has remained disoriented but sl better today in the fact - he knows most of the time he is in the hospital and had some sort of surgery. Still requires freq cues verbally and written to maintain lami precautions, he simply forgets. Pt has been up and amb, working w/PT. Cont w/poc.
[2019-03-23] MEDS: SIMVASTATIN 20 MG TABLET PO (17:33)
[2019-03-23] MEDS: SENNOSIDES 8.6 MG TABLET 17.2 MG PO (20:04)
[2019-03-23] MEDS: GABAPENTIN 300 MG CAPSULE PO (20:04)
--- NOTE | 2019-03-23 21:37 | PC.NURSE ---
Pt upset by bed and chair alarms, made him feel like he was doing something wrong. Took them off and patient was very cooperative and happier. He wants to be discharged tomorrow. He advised his RN that he has dementia and ALZ.
[2019-03-24 03:36] VITALS: BP 145/83; PULSE 80; RESP 19; TEMP 36.6; O2SAT 97
[2019-03-24 08:00] VITALS: BP 145/83; PULSE 76; RESP 18; TEMP 36.5; O2SAT 98
[2019-03-24] MEDS: DOCUSATE 100 MG CAPSULE PO (08:47)
[2019-03-24] MEDS: hydroCHLOROthiazide 25 MG TABLET PO (08:47)
[2019-03-24] MEDS: ASPIRIN EC 81 MG TABLET PO (08:47)
[2019-03-24] MEDS: CELECOXIB 200 MG CAPSULE PO (08:47)
--- NOTE | 2019-03-24 08:58 | PM.PNPO.1 ---
Subjective Subjective Date Patient Seen: 03/24/19 Time Patient Seen: 08:59 Interval history: He is doing fine. Anxious to go home. Exam Vital Signs (past 8 hours): - 03/24/19 03:36 Temperature 97.8 F Pulse Rate 80 Respiratory Rate 19 Blood Pressure 145/83 H Pulse Oximetry 97 Oxygen Delivery Method Room Air Oxygen Flow Rate 0 Const Orientation: alert and oriented x3 Back/Spine/Pelvis Other: CDI. 5/5 motor both lower extremities Objective Labs Result Diagrams: 03/21/19 05:00 03/21/19 05:00 Assessment & Plan Post-op Postoperative Procedures: Procedures Operation Date: 03/20/19 07:45 Actual Procedures Side Surgeon p L3-S1 laminectomy & L4-S1 posterior instrumented fusion w/ bone graft Riky Chan MD he has made arrangements for friend come stay with him for the next several days. I think he is safe for discharge at this point. Quality VTE Deep Vein Thrombosis/Pulmonary Embolism Present on Admission: No
[2019-03-24] MEDS: ACETAMINOPHEN 325 MG TABLET 650 MG PO (10:18)
--- NOTE | 2019-03-24 11:13 | PT-IP ANOTE ---
PT refused states he is D/C soon.
--- NOTE | 2019-03-24 11:20 | CM.DPC ---
DCP Discharge Home Per Ortho MD, pt is medically stable to d/c home with friend 27/12 assist since insurance denied SNF auth. JOYCE received call from pt's supportive local friend Shashi who states pt called him and updated him on d/c orders for today. Friend Shashi aware that SW had also spoken with pt's friend Freda yesterday with plan of d/c today with her to stay with pt about 5 days at discharge for assist. Since Freda doesn't get off work until 1500 today, Shashi plans to provide transport home for the pt today around 1230 and stay with pt until Freda arrives at pt's home after work around 1530. JOYCE updated RN and MD and pt agreeable with d/c plan for today as he has been anxious to get back home. Plan: Patient to d/c home today via friend Harinder VALLADARES around 1230 and friend Freda to stay with pt the next 5 days. ARIS Thomas
== END 2019-03-24 12:35 | disposition home or self-care (01) | DRG 454 ==
PROVIDERS: Admitting Provider Orthopaedic Surgery; PCP Internal Medicine; Visit Provider Orthopaedic Surgery
PROC: 0SG00AJ Fusion of Lumbar Vertebral Joint with Interbody Fusion Device, Posterior Approach, Anterior Column, Open Approach (ICD-10-PCS; principal; 2019-03-20 07:45)
DX: M48.062 Spinal stenosis, lumbar region with neurogenic claudication (principal); F02.81 Dementia in other diseases classified elsewhere, unspecified severity, with behavioral disturbance; S32.020S Wedge compression fracture of second lumbar vertebra, sequela; M43.16 Spondylolisthesis, lumbar region; W11.XXXD Fall on and from ladder, subsequent encounter; I10 Essential (primary) hypertension; F32.9 Major depressive disorder, single episode, unspecified; G30.9 Alzheimer's disease, unspecified; Z87.891 Personal history of nicotine dependence
CPT/HCPCS: 36415; 72100; 76000; 80048; 85014; 85018; 94762; 97116; 97127; 97162; 97165; 97530; 97535; C1776; J0330; J0595; J0690; J1100; J1170; J2274; J2405; J2704; J3010